=== PATIENT | male | born 1945 | race Caucasian/White ===

== ENCOUNTER 2021-09-12 15:30 | Observation (INO) | payer MEDICARE, OTHER, SELFPAY ==
--- NOTE | ~2021-09-12 | CT_ITS ---
EXAMINATION: CT CHEST, ABDOMEN PELVIS, BRAIN AND CERVICAL SPINE. CLINICAL INFORMATION: Fall, left-sided chest and abdominal pain. On Coumadin. Head strike. COMPARISON: None TECHNIQUE: 5 mm thin axial and reformatted 2 mm thin sagittal and coronal images of brain were obtained. Axial 3 mm thin and reformatted 2 mm thin sagittal and coronal images of cervical spine were obtained. Subsequently 5 mm thin axial and reformatted 3 mm thin sagittal and coronal images of chest, abdomen pelvis were obtained without contrast. DLP [id number] FINDINGS: BRAIN: There is no acute intra-axial, extra-axial bleed, masses or midline shift. There is a left parietal and posterior parietal hypodensities suggestive of old infarct. There is no acute infarct in evolution. There is no edema. The lateral ventricles are symmetrical in size and configuration but mildly enlarged. There is diffuse periventricular hypodensity in both cerebral hemispheres without mass effect. Bone windows reveal no calvarial abnormality. There is no scalp soft tissue abnormality. Bilateral paranasal sinuses and mastoid air cells are well-aerated except for minimal pre-existing mucosal thickening in bilateral maxillary sinuses and a small air-fluid level right sphenoid sinus. The mastoid sinuses are clear. CERVICAL SPINE: There is normal cervical lordosis the vertebral heights and alignment is normal. There is loss of C3-C4 disc height. Rest of the disc heights are maintained normal. The craniovertebral junction and the C1-C2 alignment is normal. There is no visible acute fracture, dislocation or subluxation seen. The prevertebral and paravertebral soft tissues are normal. The lung apices are clear. CHEST: There is diffuse centrilobular and paraseptal emphysematous changes of both lungs with patchy interstitial thickening in left upper lobe. There is a 6 mm right apical calcification. Subpleural 3 node groundglass nodule is seen right upper lobe axial image 92/29. Also visualized is subpleural parenchymal thickening, increased interstitial thickening in both lower lobes but no bronchiectasis or bronchial wall thickening. The heart size is enlarged with coronary artery calcifications. There is atherosclerotic calcification of thoracic arch as well. No pericardial effusion seen.There are small shotty mediastinal lymph nodes. Thyroid lobes are symmetrical with punctate calcification right lobe. There is bilateral posterior pleural thickening but no effusion or pneumothorax or calcification seen. There is mild thickening of the right superior major fissure likely small loculated effusion. The axilla and chest wall is unremarkable. Bone windows reveal no acute compression fracture or subluxation. There is moderate ventral spondylosis mid and lower lumbar spine. ABDOMEN AND PELVIS: And the liver is homogeneous in density, normal size and contour. No intrahepatic ductal dilatation seen. There are several radiopaque gallstones in a contracted bladder. Visualized spleen, pancreas and bilateral adrenal glands unremarkable. Both kidneys are normal size, shape and position. No focal lesion or perinephric stranding or hydronephrosis seen. The abdominal wall appears unremarkable. There is scattered stool diverticula and gas seen in colon. Most prominent aortic The sigmoid colon. No wall thickening or pericolic fat stranding. Imaging through the pelvis however restricted due to bilateral hip prosthesis and artifacts reveal normal prostate gland. No abnormal pelvic or inguinal lymph nodes. Bone windows reveal degenerative disc changes with vacuum disc phenomena and spondylosis L4-L5 and L5-S1 disc levels. Grade 1 retrolisthesis L4 over L5 is noted. CT/CT abdomen pelvis wo con IMPRESSION: No acute intracranial process seen. 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 No acute fracture, dislocation or subluxation seen in cervical spine. There are degenerative disc changes C3-C4 disc level with ventral and posterior spondylosis. There is no acute intrathoracic process seen. There is a chronic interstitial changes in both upper and lower lobes with emphysema and bilateral posterior pleural thickening. No large mass or abnormal mediastinal or axillary lymphadenopathy seen. Moderate cardiomegaly without peripheral effusion. There is no acute process seen in the abdomen or pelvis. Diffuse sigmoid colon and rest the colon scattered diverticulosis without diverticulitis. No intra-abdominal free air or hematoma. Gallstones in a contracted gallbladder. Degenerative L4-L5 L5/S1 disc levels. There are bilateral hip prosthesis and artifacts restricting pelvic evaluation
[2021-09-12 15:43] VITALS: PULSE 76; RESP 18; TEMP 36.9; O2SAT 94
[2021-09-12 16:04] VITALS: BP 170/82; BP 174/88; PULSE 80; O2SAT 96; BMI 24.3
--- NOTE | 2021-09-12 16:08 | ED_ITS ---
HPI - Fall General Chief Complaint: Fall Stated Complaint: mechanical fall - left rib pain Time Seen by Provider: 09/12/21 16:07 Source: patient Mode of arrival: EMS Limitations: other (Poor historian.) History of Present Illness HPI Narrative: This is a 76-year-old male past medical history significant for hypertension, diabetes, CAD, CKD presenting to the emergency department with complaints of left-sided pain status post trip and fall just prior to his arrival. Patient tells me he was walking on his deck around around table, when he tripped on his neighbors knee falling onto the left side of his body. He tells me after he fell he was unable to get up without assistance. He tells me he did not hit his head or lose consciousness when this happened. When I asked patient if he had preceding symptoms he is very vague in says my left chest was bothering me, he tells me there is a discomfort localized to the left chest that does not radiate he tells me that the discomfort is constant in nature but at time it increases. Patient tells me he is on anticoagulation initially he tells me he is on Coumadin however then he tells me he is not sure of a disc Coumadin. He denies shortness of breath, nausea, vomiting, abdominal pain, fevers, chills, dizziness, headache, neck pain. MD complaint: fall Onset (ago): hour(s) (1) Fall from: standing Fall witnessed: no Place fall occurred: home Loss of consciousness: none Prolonged down time: no Symptoms prior to fall: none Context: tripped/slipped Related Data Home Medications Medication Instructions Recorded Confirmed brimonidine 0.1 % eye drops 1 drp OPHTHALMIC-RIGHT DAILY 09/12/21 09/12/21 (Alphagan P) carvedilol 6.25 mg tablet 0.5 tab PO BID 09/12/21 09/12/21 isosorbide mononitrate 30 mg 1 tab PO DAILY 09/12/21 09/12/21 tablet,extended release 24 hr latanoprost 0.005 % eye drops 1 drp OPHTHALMIC-RIGHT BEDTIME 09/12/21 09/12/21 lisinopril 5 mg tablet 2 tab PO DAILY 09/12/21 09/12/21 mirtazapine 15 mg tablet 1 tab PO BEDTIME 09/12/21 09/12/21 nitroglycerin 0.4 mg sublingual 0.4 mg SUBLINGUAL DAILY PRN 09/12/21 09/12/21 tablet prednisone 5 mg tablet 1 tab PO QAM 09/12/21 09/12/21 rivaroxaban 20 mg tablet (Xarelto) 1 tab PO QPM 09/12/21 09/12/21 rosuvastatin 10 mg tablet 1 tab PO DAILY 09/12/21 09/12/21 sertraline 25 mg tablet 1 tab PO DAILY 09/12/21 09/12/21 tramadol 50 mg tablet 1 tab PO Q6H PRN 09/12/21 09/12/21 Allergies Allergy/AdvReac Type Severity Reaction Status Date / Time Unable to Assess Allergy Unverified 09/12/21 16:09 Review of Systems Review of Systems: Constitutional : No Weight loss, No Fever, No Chills, No Fatigue, No Malaise ENT/Mouth : No sore throat, No Rhinorrhea Eyes: No Eye Pain, No Swelling, No Redness Cardiovascular : + Chest Pain, No SOB, No Dyspnea on Exertion, No Orthopnea, No Edema, No Palpitations Respiratory : No Cough, No Sputum, No Wheezing Gastrointestinal : No Nausea, No Vomiting, No Diarrhea, No Constipation, No abdominal Pain, No Hematochezia, No Melena Genitourinary : No Dysuria, No Urinary Frequency, No Hematuria, Musculoskeletal : No joint pain, No Myalgias, No Joint Swelling Skin : No Skin Lesions, No rash Neuro : No Weakness, No Numbness, No Dizziness, No Headache Psych : No Anxiety/Panic, No Depression All other systems reviewed and are negative Yes all other systems are reviewed and are negative [facility] Past Medical History Attestation statement: The following information was validated with the patient. Source: old records reviewed and nursing notes reviewed Social History Social History Alcohol intake: never Patient Tobacco Use Status: Never used Tobacco Use of substances other than those prescribed or required for medical reasons: No Advance Directives: No Advance Directives Information Provided: No Physical Exam Vital Signs: Vital Signs: Last Vital Signs Temp 98.2 F 09/12/21 22:38 Pulse 67 09/12/21 22:38 Resp 16 09/12/21 22:38 BP 148/85 H 09/12/21 22:38 Pulse Ox 92 09/12/21 22:38 BMI result Body Mass Index 24.3 Vital signs stable Appearance: Alert.? Oriented X3.? No acute distress.? Head: Normocephalic, atraumatic, no step-offs or deformities Eyes: Pupils equal, round and reactive to light.? ENT: Pharynx normal.? Neck: Normal inspection.? Neck supple.? CVS: Normal heart rate and rhythm.? Pulses normal.?+ pain with palpation to left side of chest. Respiratory: No respiratory distress.? Breath sounds normal.? No signs of evidence flail chest. Abdomen: Soft and + tenderness to LUQ and LLQ.? Skin: Skin warm and dry.? Normal skin color.? Normal skin turgor.? Extremities: No lower extremity edema.? No calf ttp. 5/5 strength to bilateral upper and lower extremities Back: No midline tenderness, no C-spine tenderness, full range of motion, no CVA tenderness bilaterally Neuro: Oriented X 3.? No motor deficit.? No sensory deficit. CN 2-12 intact Course Reevaluation(s) Reevaluation #1: CBC with no significant findings requiring intervention, patient's sodium is noted to be 132, he is being hydrated. Patient's bilirubin 2.4 and he has sli ghtly elevated transaminases as well as an elevated alk-phos, patient does have tenderness to palpation to the left upper and left lower quadrant however he did fall onto his left side, he does not have pain to palpation to the right upper and right lower quadrant. I am obtaining a CT of the abdomen and pelvis. Coags requiring no intervention. CT of the head with no intracranial process is seen. Cervical spine does not show any acute fractures, dislocations or subluxations, there are degenerative disc changes noted however no acute findings. CT of the chest with chronic interstitial changes in upper and lower lobes bilaterally with emphysema and bilateral posterior pleural thickening. No masses noted. CT of the abdomen and pelvis with no acute findings requiring intervention. There are gallstones noted in the gallbladder discuss this with patient. Time: 17:55 Reevaluation #2: Spoke to Hal proxy tells me he has a hx of chf and afib. Patient had a fall was seen at [facility]. Patient is still a poor historian. 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 He has some help at home however not sufficient resources. He states he has been disoriented. He also mentions that PCP wants patient in assisted living. Time: 21:58 Reevaluation #3: Patient's BNP noted to be significantly elevated he will be given 40 mg of Lasix, and monitored. At this time patient will be admitted to the hospitalist team for elevated troponin, CHF. And further evaluation by Cardiology. Time: 22:52 MDM - Fall MDM Narrative Medical decision making narrative: 1612 76-year-old male presents to the emergency department status post trip and fall, tells me this was a mechanical fall landing on the left side of his body now complaining of left-sided rib pain/left-sided shoulder pain. No LOC. PE significant for pain with palpation to left upper and lower quadrants of the abdomen, and pain with palpation to the left side of chest, no overlying skin changes. No paroxysmal breathing no evidence signs of fluid chest. Lungs are clear unlikely that this is pneumothorax. Regular rate and rhythm. Pupils equal round and reactive to light. No step-offs or deformities on the head no e vidence signs of trauma. No step-offs or deformities or tenderness of the cervical spine. Neuro nonfocal. Plan- labs, urine, ct head chest, abd and pelvis, cervical spine. Will r/o rib fx, ich. Unlikley pneumothorax Medical Records Attestation: I reviewed the patient's medical records. Lab Data Attestation: I reviewed the patient's lab results. Result diagrams: 09/12/21 16:42 09/12/21 16:42 Labs: Lab Results 09/12/21 09/12/21 09/12/21 Range/Units 16:42 16:42 16:42 WBC 5.7 (4.8-10.8) X10*3/uL RBC 4.34 L (4.60-5.80) X10*6/uL Hgb 12.7 L (14.0-18.0) g/dl Hct 38.3 L (42.0-52.0) % MCV 88.2 (80.0-98.0) fL MCH 29.3 (27.0-33.0) pg MCHC 33.2 (31.0-36.0) g/dl RDW 15.4 (11.0-16.0) % Plt Count 130 L (160-400) X10*3/uL MPV 10.5 (9.4-12.4) fL Immature Gran % (Auto) 0.5 H (0.0-0.4) % Neut % (Auto) 70.7 (45-73) % Lymph % (Auto) 7.0 L (20-40) % [place] % (Auto) 9.2 (2-11) % Eos % (Auto) 11.0 H (0-4) % Baso % (Auto) 1.6 (0-2) % Lymph # (Auto) 0.4 L (1.2-4.9) X10*3/uL [place] # (Auto) 0.5 (0.1-1.2) X10*3/uL Eos # (Auto) 0.6 H (0.0-0.4) X10*3/uL Baso # (Auto) 0.1 (0.0-0.2) X10*3/uL Abs Immat Gran (auto) 0.03 (0.00-0.03) X10*3/uL Absolute Neuts (auto) 4.1 (2.0-8.3) x10*3/uL Absolute Nucleated RBC 0.000 (0.0-0.012) X10*3/uL Nucleated RBC % (auto) 0.0 (0.0-0.2) /100WBC PT 18.1 H (9.9-13.0) SEC INR 1.6 H (0.9-1.1) Sodium 132 L (135-145) mmol/L Potassium 4.5 (3.3-5.1) mmol/L Chloride 99 (96-108) mmol/L Carbon Dioxide 24 (22-29) mmol/L Anion Gap 14 (12-20) BUN 11 (9-16) mg/dL Creatinine 0.78 (0.5-1.4) mg/dL Estim Creat Clear Calc 80.5 Estimated GFR > 60 Random Glucose 97 (60-115) mg/dL Calcium 9.6 (8.4-10.2) mg/dL Magnesium 1.9 (1.6-2.6) mg/dL Total Bilirubin 2.4 H (0.0-1.0) mg/dL AST 59 H (5-37) U/L ALT 50 H (0-40) U/L Alkaline Phosphatase 327 H (39-117) U/L Troponin I High Sens (<3.5-35.0) ng/L B-Natriuretic Peptide (<100) pg/mL Total Protein 7.1 (6.5-8.0) g/dL Albumin 3.3 L (3.5-5.0) g/dL Urine Color Urine Appearance Urine pH (5.0-8.0) Ur Specific [place] (1.005-1.025) Urine Protein (NEG-TRACE) MG/DL Urine Glucose (UA) (NEG) MG/DL Urine Ketones (NEG) MG/DL Urine Blood (NEG) Urine Nitrite (NEG) Ur Leukocyte Esterase (NEG) Urine RBC (0) /HPF Urine WBC (0-4) /HPF Ur Squamous Epith Cells /LPF Urine Bacteria /LPF 09/12/21 09/12/21 09/12/21 Range/Units 16:42 20:27 20:28 WBC (4.8-10.8) X10*3/uL RBC (4.60-5.80) X10*6/uL Hgb (14.0-18.0) g/dl Hct (42.0-52.0) % MCV (80.0-98.0) fL MCH (27.0-33.0) pg MCHC (31.0-36.0) g/dl RDW (11.0-16.0) % Plt Count (160-400) X10*3/uL MPV (9.4-12.4) fL Immature Gran % (Auto) (0.0-0.4) % Neut % (Auto) (45-73) % Lymph % (Auto) (20-40) % [place] % (Auto) (2-11) % Eos % (Auto) (0-4) % Baso % (Auto) (0-2) % Lymph # (Auto) (1.2-4.9) X10*3/uL [place] # (Auto) (0.1-1.2) X10*3/uL Eos # (Auto) (0.0-0.4) X10*3/uL Baso # (Auto) (0.0-0.2) X10*3/uL Abs Immat Gran (auto) (0.00-0.03) X10*3/uL Absolute Neuts (auto) (2.0-8.3) x10*3/uL Absolute Nucleated RBC (0.0-0.012) X10*3/uL Nucleated RBC % (auto) (0.0-0.2) /100WBC PT (9.9-13.0) SEC INR (0.9-1.1) Sodium (135-145) mmol/L Potassium (3.3-5.1) mmol/L Chloride (96-108) mmol/L Carbon Dioxide (22-29) mmol/L Anion Gap (12-20) BUN (9-16) mg/dL Creatinine (0.5-1.4) mg/dL Estim Creat Clear Calc Estimated GFR Random Glucose (60-115) mg/dL Calcium (8.4-10.2) mg/dL Magnesium (1.6-2.6) mg/dL Total Bilirubin (0.0-1.0) mg/dL AST (5-37) U/L ALT (0-40) U/L Alkaline Phosphatase (39-117) U/L Troponin I High Sens 29.7 35.9 H (<3.5-35.0) ng/L B-Natriuretic Peptide 1131 H (<100) pg/mL Total Protein (6.5-8.0) g/dL Albumin (3.5-5.0) g/dL Urine Color YELLOW Urine Appearance CLEAR Urine pH 6.5 (5.0-8.0) Ur Specific [place] 1.020 (1.005-1.025) Urine Protein 2+ H (NEG-TRACE) MG/DL Urine Glucose (UA) NEG (NEG) MG/DL Urine Ketones 15 (NEG) MG/DL Urine Blood NEG (NEG) Urine Nitrite NEG (NEG) Ur Leukocyte Esterase NEG (NEG) Urine RBC 0-2 (0) /HPF Urine WBC 0-2 (0-4) /HPF Ur Squamous Epith Cells TRACE /LPF Urine Bacteria NONE /LPF Critical Care Time Critical Care Time Critical Care Time: No Discharge Plan Discharge Clinical Impression: Fall, Rib pain, Chest pain, CHF (congestive heart failure) Patient Disposition: Admitted As Inpatient
[2021-09-12 16:47] LABS: MANUAL DIFF FLAG NO
[2021-09-12 16:51] LABS: Basophils Absolute Auto 0.1 X10*3/uL (0.0-0.2); Basophils Percent Auto 1.6 % (0-2); Eosinophils Absolute Auto 0.6 X10*3/uL (0.0-0.4); Hematocrit 38.3 % (42.0-52.0); Hemoglobin 12.7 g/dl (14.0-18.0); Imm Gran Abs Auto 0.03 X10*3/uL (0.00-0.03); Imm Gran Pct Auto 0.5 % (0.0-0.4); Lymphocytes Absolute Auto 0.4 X10*3/uL (1.2-4.9); Mean Corpuscular HGB Conc 33.2 g/dl (31.0-36.0); Mean Corpuscular Hemoglobin 29.3 pg (27.0-33.0); Mean Corpuscular Volume 88.2 fL (80.0-98.0); Mean Platelet Volume 10.5 fL (9.4-12.4); Monocytes Absolute Auto 0.5 X10*3/uL (0.1-1.2); Monocytes Percent Auto 9.2 % (2-11); Neutrophils Absolute Auto 4.1 x10*3/uL (2.0-8.3); Neutrophils Percent Auto 70.7 % (45-73); Platelet Count 130 X10*3/uL (160-400); Red Blood Count 4.34 X10*6/uL (4.60-5.80); Red Cell Distribution Width 15.4 % (11.0-16.0); White Blood Count 5.7 X10*3/uL (4.8-10.8)
[2021-09-12 16:54] LABS: INTERNATIONAL NORM RATIO 1.6 (0.9-1.1); Prothrombin Time 18.1 SEC (9.9-13.0)
[2021-09-12 17:14] LABS: Alanine Aminotransferase 50 U/L (0-40); Albumin Level 3.3 g/dL (3.5-5.0); Alkaline Phosphatase 327 U/L (39-117); Anion Gap 14 (12-20); Aspartate Amino Transferase 59 U/L (5-37); Bilirubin Total 2.4 mg/dL (0.0-1.0); Blood Urea Nitrogen 11 mg/dL (9-16); Calcium 9.6 mg/dL (8.4-10.2); Carbon Dioxide 24 mmol/L (22-29); Chloride 99 mmol/L (96-108); Creatinine Clr Calc Pharmacy 80.5; Estimated Glomerular Filt Rate > 60; Glucose Random 97 mg/dL (60-115); Magnesium 1.9 mg/dL (1.6-2.6); Potassium 4.5 mmol/L (3.3-5.1); Sodium 132 mmol/L (135-145); Total Protein 7.1 g/dL (6.5-8.0)
[2021-09-12 17:20] LABS: Troponin-I High Sensitivity 29.7 ng/L (<3.5-35.0)
--- NOTE | 2021-09-12 18:05 | ECG_ITS ---
Test Reason : CP Blood Pressure : / mmHG Vent. Rate : 072 BPM Atrial Rate : 000 BPM P-R Int : 000 ms QRS Dur : 122 ms QT Int : 400 ms P-R-T Axes : 000 -58 109 degrees QTc Int : 438 ms Atrial fibrillation Left axis deviation Left ventricular hypertrophy with QRS widening and repolarization abnormality ( R in aVL , Jc product , Romhilt-Tovar ) Lateral infarct , age undetermined Inferior infarct , age undetermined Abnormal ECG No previous ECGs available Referred By: Fidel Joshi Electronically Signed By:EMANUEL NAGY
[2021-09-12 18:37] VITALS: BP 155/87; PULSE 74; RESP 16; TEMP 37.1; O2SAT 95
[2021-09-12 20:35] LABS: Appearance Urine CLEAR; Color Urine YELLOW; Glucose Urine UA NEG (NEG); Leukocyte Esterase Urine NEG (NEG); Nitrite Urine NEG (NEG); PH 6.5 (5.0-8.0); UACC Culture Trigger NO; Urine Blood NEG (NEG); Urine Ketones 15 MG/DL (NEG); Urine Protein 2+ MG/DL (NEG-TRACE)
--- NOTE | 2021-09-12 20:44 | PHA.MEDREC ---
Pharmacy Consult ? Medication Reconciliation Pharmacy has completed the medication reconciliation. Patient is not a good historian. Patient reports taking medications filled in march and unsure about medications recently filled. Completed med rec based on claim history. Medication not include in home list as they have no been filled recently are: Finasteride 5 mg daily filled 04/15/21 x 90 days Furosemide 40 mg 0.5 tablet daily filled 04/03/21 x 90 Tamsulosin 0.4 mg at bedtime filled 05/01/21 x 90 Patient should have ran out of these medications, and is most likely no longer taking medications. Aimee Crews, PharmD
[2021-09-12 21:11] LABS: Troponin-I High Sensitivity 35.9 ng/L (<3.5-35.0)
[2021-09-12 22:21] LABS: B Type Natriuretic Peptide 1131 pg/mL (<100)
[2021-09-12 22:35] LABS: RBC Urine 0-2 /HPF (0); Squamous Epithelial Cell Urine TRACE /LPF; WBC Urine 0-2 /HPF (0-4)
[2021-09-12 22:38] VITALS: BP 148/85; PULSE 67; RESP 16; TEMP 36.8; O2SAT 92
[2021-09-12] MEDS: Furosemide 40 MG/4 ML VIAL IVPUSH (22:45)
[2021-09-12 23:10] VITALS: BP 163/83; PULSE 72; RESP 16; O2SAT 94
--- NOTE | 2021-09-12 23:11 | P.HPHOSP_ITS ---
History of Present Illness Date of Service: 09/12/21 Chief Complaint: fall 76M with Hx of HTN, HLD, DM, CKD,hx Rec falls,CVA, Forgetfullness p/w Fall. patient reported that he was walking around his deck; tripped and fell on the left side; at his left chest; denies any head strike or loss of consciousness. Reports he has been generally weak. Patient also reports urinary frequency. Denies any abdominal pain. Denies any fevers. Patient denies any loss of consciousness. denies any GI symptoms. Also reported that he had recent falls and admitted to the [facility]. Review of all other systems is negative except mentioned above ER course: Per ER team patient does complain of chest pain; CT scan head, C- spine, chest abdomen pelvis showed no acute findings; EKG nonischemic; troponins indeterminate and plateaued; mentioned that when spoken to the patient's healthcare proxy -patient lives alone, forgetful lately, question reliable history; given unwitnessed fall in concerns for possible syncope decided to admit to the hospital for further management PMFSH Pertinent family history: patient unable to provide information Social History Alcohol intake: never Patient Tobacco Use Status: Never used Tobacco Use of substances other than those prescribed or required for medical reasons: No Advance Directives: No Advance Directives Information Provided: No Meds Allergies Allergy/AdvReac Type Severity Reaction Status Date / Time Unable to Assess Allergy Unverified 09/12/21 16:09 Active Medications: Current Medications Acetaminophen (Acetaminophen 325 Mg Tablet) 650 mg PO Q6H PRN PRN Reason: Pain, Mild (Pain Scale 1-3) Melatonin (Melatonin 3 Mg Tablet) 6 mg PO BEDTIME PRN PRN Reason: Insomnia Pharmacy Consult (Consult Rx Perform Med Rec) 1 each MISCELLANE ONCE PRN PRN Reason: Consult order Senna (Sennosides 8.6 Mg Tablet) 17.2 mg PO BEDTIME PRN PRN Reason: Constipation Sodium Chloride (0.9 % Sodium Chloride Flush 3 Ml Syringe) 3 ml IVFLUSH QSHIFT [facility] Home Medications Medication Instructions Recorded Confirmed Last Taken Type brimonidine 0.1 % eye drops 1 drp OPHTHALMIC-RIGHT DAILY 09/12/21 09/12/21 Unknown History (Alphagan P) carvedilol 6.25 mg tablet 0.5 tab PO BID 09/12/21 09/12/21 Unknown History isosorbide mononitrate 30 mg 1 tab PO DAILY 09/12/21 09/12/21 Unknown History tablet,extended release 24 hr latanoprost 0.005 % eye drops 1 drp OPHTHALMIC-RIGHT BEDTIME 09/12/21 09/12/21 Unknown History lisinopril 5 mg tablet 2 tab PO DAILY 09/12/21 09/12/21 Unknown History mirtazapine 15 mg tablet 1 tab PO BEDTIME 09/12/21 09/12/21 Unknown History nitroglycerin 0.4 mg sublingual 0.4 mg SUBLINGUAL DAILY PRN 09/12/21 09/12/21 Unknown History tablet prednisone 5 mg tablet 1 tab PO QAM 09/12/21 09/12/21 Unknown History rivaroxaban 20 mg tablet (Xarelto) 1 tab PO QPM 09/12/21 09/12/21 Unknown History rosuvastatin 10 mg tablet 1 tab PO DAILY 09/12/21 09/12/21 Unknown History sertraline 25 mg tablet 1 tab PO DAILY 09/12/21 09/12/21 Unknown History tramadol 50 mg tablet 1 tab PO Q6H PRN 09/12/21 09/12/21 Unknown History Physical Exam Vital Signs and Narrative: Vital Signs: Last Vital Signs Temp 98.2 F 09/12/21 22:38 Pulse 67 09/12/21 22:38 Resp 16 09/12/21 22:38 BP 148/85 H 09/12/21 22:38 Pulse Ox 92 09/12/21 22:38 BMI result Body Mass Index 24.3 Gen: Appears be in no acute distress HEENT: NCAT, Moist mucosa. Pulmonary: Vesicular breath sounds, fair air entry CVS: Normal S1-S2 Abdomen: BS+, Soft, Nontender Extremities: Warm well perfused Neuro: Alert and awake. Results Labs CBC and Chem 7: 09/12/21 16:42 09/12/21 16:42 Labs: Laboratory Results - last 24 hr 09/12/21 09/12/21 09/12/21 16:42 16:42 16:42 MCV 88.2 MCH 29.3 MCHC 33.2 RDW 15.4 Plt Count 130 L MPV 10.5 Immature Gran % (Auto) 0.5 H Neut % (Auto) 70.7 Lymph % (Auto) 7.0 L [place] % (Auto) 9.2 Eos % (Auto) 11.0 H Baso % (Auto) 1.6 Lymph # (Auto) 0.4 L [place] # (Auto) 0.5 Eos # (Auto) 0.6 H Baso # (Auto) 0.1 Abs Immat Gran (auto) 0.03 Absolute Neuts (auto) 4.1 Absolute Nucleated RBC 0.000 Nucleated RBC % (auto) 0.0 PT 18.1 H INR 1.6 H Anion Gap 14 Estim Creat Clear Calc 80.5 Estimated GFR > 60 Random Glucose 97 Calcium 9.6 Magnesium 1.9 Total Bilirubin 2.4 H AST 59 H ALT 50 H Alkaline Phosphatase 327 H Troponin I High Sens B-Natriuretic Peptide Total Protein 7.1 Albumin 3.3 L Urine Color Urine Appearance Urine pH Ur Specific [place] Urine Protein Urine Glucose (UA) Urine Ketones Urine Blood Urine Nitrite Ur Leukocyte Esterase Urine RBC Urine WBC Ur Squamous Epith Cells Urine Bacteria 09/12/21 09/12/21 09/12/21 16:42 20:27 20:28 MCV MCH MCHC RDW Plt Count MPV Immature Gran % (Auto) Neut % (Auto) Lymph % (Auto) [place] % (Auto) Eos % (Auto) Baso % (Auto) Lymph # (Auto) [place] # (Auto) Eos # (Auto) Baso # (Auto) Abs Immat Gran (auto) Absolute Neuts (auto) Absolute Nucleated RBC Nucleated RBC % (auto) PT INR Anion Gap Estim Creat Clear Calc Estimated GFR Random Glucose Calcium Magnesium Total Bilirubin AST ALT Alkaline Phosphatase Troponin I High Sens 29.7 35.9 H B-Natriuretic Peptide 1131 H Total Protein Albumin Urine Color YELLOW Urine Appearance CLEAR Urine pH 6.5 Ur Specific [place] 1.020 Urine Protein 2+ H Urine Glucose (UA) NEG Urine Ketones 15 Urine Blood NEG Urine Nitrite NEG Ur Leukocyte Esterase NEG Urine RBC 0-2 Urine WBC 0-2 Ur Squamous Epith Cells TRACE Urine Bacteria NONE Imaging Radiologist's Impressions: Impressions Abdomen/Pelvis CT 09/12/21 16:55 IMPRESSION: No acute intracranial process seen. 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 No acute fracture, dislocation or subluxation seen in cervical spine. There are degenerative disc changes C3-C4 disc level with ventral and posterior spondylosis. There is no acute intrathoracic process seen. There is a chronic interstitial changes in both upper and lower lobes with emphysema and bilateral posterior pleural thickening. No large mass or abnormal mediastinal or axillary lymphadenopathy seen. Moderate cardiomegaly without peripheral effusion. There is no acute process seen in the abdomen or pelvis. Diffuse sigmoid colon and rest the colon scattered diverticulosis without diverticulitis. No intra-abdominal free air or hematoma. Gallstones in a contracted gallbladder. Degenerative L4-L5 L5/S1 disc levels. There are bilateral hip prosthesis and artifacts restricting pelvic evaluation Cervical Spine CT 09/12/21 16:55 IMPRESSION: No acute intracranial process seen. 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 No acute fracture, dislocation or subluxation seen in cervical spine. There are degenerative disc changes C3-C4 disc level with ventral and posterior spondylosis. There is no acute intrathoracic process seen. There is a chronic interstitial changes in both upper and lower lobes with emphysema and bilateral posterior pleural thickening. No large mass or abnormal mediastinal or axillary lymphadenopathy seen. Moderate cardiomegaly without peripheral effusion. There is no acute process seen in the abdomen or pelvis. Diffuse sigmoid colon and rest the colon scattered diverticulosis without diverticulitis. No intra-abdominal free air or hematoma. Gallstones in a contracted gallbladder. Degenerative L4-L5 L5/S1 disc levels. There are bilateral hip prosthesis and artifacts restricting pelvic evaluation Chest CT 09/12/21 16:55 IMPRESSION: No acute intracranial process seen. 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 No acute fracture, dislocation or subluxation seen in cervical spine. There are degenerative disc changes C3-C4 disc level with ventral and posterior spondylosis. There is no acute intrathoracic process seen. There is a chronic interstitial changes in both upper and lower lobes with emphysema and bilateral posterior pleural thickening. No large mass or abnormal mediastinal or axillary lymphadenopathy seen. Moderate cardiomegaly without peripheral effusion. There is no acute process seen in the abdomen or pelvis. Diffuse sigmoid colon and rest the colon scattered diverticulosis without diverticulitis. No intra-abdominal free air or hematoma. Gallstones in a contracted gallbladder. Degenerative L4-L5 L5/S1 disc levels. There are bilateral hip prosthesis and artifacts restricting pelvic evaluation Head CT 09/12/21 16:55 IMPRESSION: No acute intracranial process seen. 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 No acute fracture, dislocation or subluxation seen in cervical spine. There are degenerative disc changes C3-C4 disc level with ventral and posterior spondylosis. There is no acute intrathoracic process seen. There is a chronic interstitial changes in both upper and lower lobes with emphysema and bilateral posterior pleural thickening. No large mass or abnormal mediastinal or axillary lymphadenopathy seen. Moderate cardiomegaly without peripheral effusion. There is no acute process seen in the abdomen or pelvis. Diffuse sigmoid colon and rest the colon scattered diverticulosis without diverticulitis. No intra-abdominal free air or hematoma. Gallstones in a contracted gallbladder. Degenerative L4-L5 L5/S1 disc levels. There are bilateral hip prosthesis and artifacts restricting pelvic evaluation Assessment and Plan (1) Fall: Status: Acute (2) Chest pain: Status: Acute Plan 76M with Hx of HTN, HLD, DM, CKD,hx Rec falls,CVA, Forgetfullness p/w Fall. fall: Unwitnessed: CT scan showed no evidence of fracture. CT head showed no acute intracranial process Fall precautions PT/OT chest pain: Reproducible Telemetry Troponins are indeterminate and plateaued. EKG nonischemic Mild transaminitis: Patient t Bili Elevated 2.4. no evidence of slightly elevated. Will obtain acute hepatitis panel. CT abdomen pelvis showed normal liver but noted gallstones. ?DM: ISS; Hba1c. Pt not on any meds at home. history of AFib: Rate controlled. Continue home rivaroxaban. Pt has elevated proBNP; but CT chest showed no congestion. pt received Lasix in ER. Now requesting Delcid. history of rheumatoid arthritis: Continue home prednisone history of hypertension: Continue home medication history of glaucoma: Continue home eye drops DVT prophylaxis: Patient on Xarelto code status: Full code Quality Stroke Does the patient have a stroke diagnosis?: No VTE Prior VTE?: No VTE Risk Level:: Medical - moderate - high VTE Device Contraindication: Treatment Not Indicated VTE Drug Contraindication: N/A - Med Ordered
[2021-09-13] VITALS (10 sets, daily range): BP systolic 94–156; BP diastolic 46–77; PULSE 59–74; RESP 16–30; TEMP 36.7–36.9; O2SAT 90–98
[2021-09-13] MEDS: Melatonin 3 MG TABLET 6 MG PO (01:13)
[2021-09-13] MEDS: Mirtazapine 15 MG TABLET PO ×2 (01:14→20:38)
[2021-09-13] MEDS: Rivaroxaban 20 MG TABLET PO ×2 (01:14→17:20)
[2021-09-13] MEDS: 0.9 % Sodium Chloride Flush 3 ML SYRINGE IVFLUSH ×4 (01:14→23:18)
[2021-09-13] MEDS: carvediloL 3.125 MG TABLET PO ×3 (01:14→20:37)
[2021-09-13] MEDS: Lidocaine HCl 2 % Urojet 10 ML JEL.PF.APP TOPICAL (01:31)
[2021-09-13 05:14] LABS: Eosinophils Absolute Auto 0.5 X10*3/uL (0.0-0.4); Hemoglobin 12.1 g/dl (14.0-18.0); Imm Gran Abs Auto 0.03 X10*3/uL (0.00-0.03); Imm Gran Pct Auto 0.5 % (0.0-0.4); Lymphocytes Absolute Auto 0.4 X10*3/uL (1.2-4.9); Lymphocytes Percent Auto 7.7 % (20-40); PLT CLUMP 1; Red Cell Distribution Width 15.3 % (11.0-16.0); SCAN SMEAR FLAG 1
[2021-09-13 05:16] LABS: Basophils Absolute Auto 0.1 X10*3/uL (0.0-0.2); Basophils Percent Auto 1.4 % (0-2); Eosinophils Percent Auto 9.7 % (0-4); Hematocrit 35.8 % (42.0-52.0); Mean Corpuscular HGB Conc 33.8 g/dl (31.0-36.0); Mean Corpuscular Volume 88.6 fL (80.0-98.0); Mean Platelet Volume 12.4 fL (9.4-12.4); Monocytes Absolute Auto 0.6 X10*3/uL (0.1-1.2); Monocytes Percent Auto 9.8 % (2-11); Neutrophils Percent Auto 70.9 % (45-73); Red Blood Count 4.04 X10*6/uL (4.60-5.80)
[2021-09-13 05:17] LABS: MANUAL DIFF FLAG NO; Platelet Count 119 X10*3/uL (160-400); White Blood Count 5.6 X10*3/uL (4.8-10.8)
[2021-09-13 05:30] LABS: Alanine Aminotransferase 41 U/L (0-40); Albumin Level 2.9 g/dL (3.5-5.0); Alkaline Phosphatase 286 U/L (39-117); Aspartate Amino Transferase 41 U/L (5-37); Bilirubin Direct 1.5 mg/dL (0.0-0.5); Bilirubin Total 2.4 mg/dL (0.0-1.0); Total Protein 6.2 g/dL (6.5-8.0)
[2021-09-13 05:34] LABS: Anion Gap 10 (12-20); Blood Urea Nitrogen 11 mg/dL (9-16); Calcium 8.9 mg/dL (8.4-10.2); Carbon Dioxide 28 mmol/L (22-29); Chloride 97 mmol/L (96-108); Creatinine Clr Calc Pharmacy 84.9; Estimated Glomerular Filt Rate > 60; Glucose Random 93 mg/dL (60-115); Potassium 3.4 mmol/L (3.3-5.1); Sodium 132 mmol/L (135-145)
[2021-09-13 06:40] LABS: Estimated Average Glucose 117 mg/dL; Hemoglobin A1c % 5.7 %
[2021-09-13 07:59] LABS: HBc Num1 0.16 S/CO (0.00-0.79); Hepatitis B Core Antibody Nonreactive (Nonreactive); Hepatitis B Surface Antigen Negative (Negative); ~HepC Num1 0.16 S/CO (0.00-0.79); ~Hepatitis B Surface Antibody NONREACTIVE (Nonreactive); ~Hepatitis C Antibody Nonreactive (Nonreactive)
[2021-09-13 08:00] LABS: Glucose, Whole Blood 89 mg/dL (60-115)
[2021-09-13 08:27] LABS: HBS Num1 0.21 mIU/mL (0-7.99); HBsAGNum1 0.67 S/CO (0.00-0.99)
[2021-09-13 08:49] LABS: VBG Base Excess 5.7 mmol/L; VBG HCO3 30 mmol/L (22-26); VBG pCO2 45 mmHg; VBG pH 7.43 (7.32-7.43); VBG pO2 35 mmHg
[2021-09-13 08:50] LABS: Venous Blood Gas Refer to POC result
[2021-09-13] MEDS: predniSONE 5 MG TABLET PO (08:57)
[2021-09-13] MEDS: Sertraline HCL 25 MG TABLET PO (08:57)
[2021-09-13] MEDS: Isosorbide Mononitrate 30 MG TAB.ER.24H PO (08:57)
[2021-09-13] MEDS: Atorvastatin Calcium 40 MG TABLET PO (08:57)
[2021-09-13] MEDS: lisinopriL 10 MG TABLET PO (08:57)
[2021-09-13 09:03] LABS: Troponin-I High Sensitivity 39.6 ng/L (<3.5-35.0)
[2021-09-13 09:04] LABS: B Type Natriuretic Peptide 1542 pg/mL (<100)
[2021-09-13] MEDS: Brimonidine Tartrate 0.2% Oph 5 ML BOTTLE 1 DROP EYE-RIGHT (09:15)
[2021-09-13 10:37] LABS: COVID-19 Test Negative (Negative)
--- NOTE | 2021-09-13 10:54 | MHC.CM.PN ---
Met with pt to discuss d/c planning: pt states he resides alone, has VNA visits from an unknown agency and uses a walker or a cane. States PCP is Dr. Mcmahon, HCP at home (cousin Sam), Angiea x 3, MANDUJANO in chart. Pt states he will be leaving the ED for home shortly No d/c order in place as of this entry. CM to follow. No additional services anticipated and pt should be able to return to home without services.
[2021-09-13 13:01] LABS: Glucose, Whole Blood 113 mg/dL (60-115)
--- NOTE | 2021-09-13 15:15 | HO.PM.IMPN ---
Subjective Subjective Date of Service: 09/13/21 Interval History: Confirmed he had a purely mechanical fall. No LOC. However, he is extremely forgetful. He was at [facility] last week but unsure whether he was admitted or not. Chest pain resolved NO cough or dyspnea Review of Systems Review of Systems: Yes all other systems are reviewed and are negative Physical Exam Vital Signs: Vital Signs: Last Vital Signs Temp 98.2 F 09/13/21 11:03 Pulse 59 09/13/21 11:03 Resp 18 09/13/21 11:03 BP 123/71 09/13/21 11:03 Pulse Ox 98 09/13/21 06:00 BMI result Body Mass Index 24.3 Gen: in no acute distress HEENT: sclera anicteric, moist mucus membranes Neck: supple Lungs: clear to auscultation bilaterally Heart: irregularly irregular, no murmurs Abd: soft, non-tender, non-distended Ext: no edema Skin: warm/well-perfused Neuro: alert and oriented x3, no focal findings Psych: appropriate affect Objective Data Active Medications Acetaminophen (Acetaminophen 325 Mg Tablet) 650 mg PO Q6H PRN PRN Reason: Pain, Mild (Pain Scale 1-3) Atorvastatin Calcium (Atorvastatin Calcium 40 Mg Tablet) 40 mg PO DAILY [facility] Last Admin: 09/13/21 08:57 Dose: 40 mg Documented by: DENYS Brimonidine Tartrate (Brimonidine Tartrate 0.2% Oph 5 Ml Bottle) 1 drop EYE-RIGHT DAILY [facility] Last Admin: 09/13/21 09:15 Dose: 1 drop Documented by: DENYS Carvedilol (Carvedilol 3.125 Mg Tablet) 3.125 mg PO BID [facility]; Protocol Last Admin: 09/13/21 08:57 Dose: 3.125 mg Documented by: DENYS Dextrose (Dextrose 50 % 25 Gm/50 Ml Syringe) 25 gm IVPUSH Q15M PRN; Protocol PRN Reason: per Hypoglycemia Standing Ord. Glucose (Glucose Gel 15 Gm Gel..Gram.) 15 gm PO Q15M PRN; Protocol PRN Reason: per Hypoglycemia Standing Ord. Insulin Human Lispro (Insulin Lispro 100 Unit/Ml 3 Ml Vial) 0 unit SUBCUT QIDACHS [facility]; Protocol Last Admin: 09/13/21 13:33 Dose: Not Given Documented by: DENYS Non-Admin Reason: No Insulin Coverage Isosorbide Mononitrate (Isosorbide Mononitrate 30 Mg Tab.Er.24h) 30 mg PO DAILY [facility]; Protocol Last Admin: 09/13/21 08:57 Dose: 30 mg Documented by: DENYS Latanoprost (Latanoprost 0.005 % Ophth Marilou 2.5 Ml Drops) 1 drop EYE-RIGHT BEDTIME [facility] Lisinopril (Lisinopril 10 Mg Tablet) 10 mg PO DAILY [facility]; Protocol Last Admin: 09/13/21 08:57 Dose: 10 mg Documented by: DENYS Melatonin (Melatonin 3 Mg Tablet) 6 mg PO BEDTIME PRN PRN Reason: Insomnia Last Admin: 09/13/21 01:13 Dose: 6 mg Documented by: KRISTA Mirtazapine (Mirtazapine 15 Mg Tablet) 15 mg PO BEDTIME [facility] Last Admin: 09/13/21 01:14 Dose: 15 mg Documented by: KRISTA Nitroglycerin (Nitroglycerin 0.4 Mg Tab.Subl) 0.4 mg SUBLINGUAL DAILY PRN PRN Reason: Chest Pain Pharmacy Consult (Consult Rx Perform Med Rec) 1 each MISCELLANE ONCE PRN PRN Reason: Consult order Prednisone (Prednisone 5 Mg Tablet) 5 mg PO DAILY@0800 [facility] Last Admin: 09/13/21 08:57 Dose: 5 mg Documented by: DENYS Rivaroxaban (Rivaroxaban 20 Mg Tablet) 20 mg PO DAILY@1800 [facility] Last Admin: 09/13/21 01:14 Dose: 20 mg Documented by: KRISTA Senna (Sennosides 8.6 Mg Tablet) 17.2 mg PO BEDTIME PRN PRN Reason: Constipation Sertraline HCl (Sertraline Hcl 25 Mg Tablet) 25 mg PO DAILY [facility] Last Admin: 09/13/21 08:57 Dose: 25 mg Documented by: DENYS Sodium Chloride (0.9 % Sodium Chloride Flush 3 Ml Syringe) 3 ml IVFLUSH QSHIFT [facility] Last Admin: 09/13/21 08:58 Dose: 3 ml Documented by: DENYS Labs CBC & Chem 7: 09/13/21 04:47 09/13/21 04:47 Labs: Laboratory Results - last 24 hr 09/12/21 09/12/21 09/12/21 16:42 16:42 16:42 MCV 88.2 MCH 29.3 MCHC 33.2 RDW 15.4 Plt Count 130 L MPV 10.5 Immature Gran % (Auto) 0.5 H Neut % (Auto) 70.7 Lymph % (Auto) 7.0 L Cloud % (Auto) 9.2 Eos % (Auto) 11.0 H Baso % (Auto) 1.6 Lymph # (Auto) 0.4 L Cloud # (Auto) 0.5 Eos # (Auto) 0.6 H Baso # (Auto) 0.1 Abs Immat Gran (auto) 0.03 Absolute Neuts (auto) 4.1 Absolute Nucleated RBC 0.000 Nucleated RBC % (auto) 0.0 PT 18.1 H INR 1.6 H VBG pH VBG pCO2 VBG pO2 VBG HCO3 VBG O2 Saturation VBG Base Excess Anion Gap 14 Estim Creat Clear Calc 80.5 Estimated GFR > 60 POC Glucose Random Glucose 97 Estimat Average Glucose Hemoglobin A1c % Calcium 9.6 Magnesium 1.9 Total Bilirubin 2.4 H Direct Bilirubin AST 59 H ALT 50 H Alkaline Phosphatase 327 H Troponin I High Sens B-Natriuretic Peptide Total Protein 7.1 Albumin 3.3 L Urine Color Urine Appearance Urine pH Ur Specific [place] Urine Protein Urine Glucose (UA) Urine Ketones Urine Blood Urine Nitrite Ur Leukocyte Esterase Urine RBC Urine WBC Ur Squamous Epith Cells Urine Bacteria COVID-19 (CHARLIE) COVID-19 Clin Com Hep Bs Antigen Hep Bs Antibody Hep B Core Total Ab Hepatitis C Ab (EIA) 09/12/21 09/12/21 09/12/21 16:42 20:27 20:28 MCV MCH MCHC RDW Plt Count MPV Immature Gran % (Auto) Neut % (Auto) Lymph % (Auto) Cloud % (Auto) Eos % (Auto) Baso % (Auto) Lymph # (Auto) Cloud # (Auto) Eos # (Auto) Baso # (Auto) Abs Immat Gran (auto) Absolute Neuts (auto) Absolute Nucleated RBC Nucleated RBC % (auto) PT INR VBG pH VBG pCO2 VBG pO2 VBG HCO3 VBG O2 Saturation VBG Base Excess Anion Gap Estim Creat Clear Calc Estimated GFR POC Glucose Random Glucose Estimat Average Glucose Hemoglobin A1c % Calcium Magnesium Total Bilirubin Direct Bilirubin AST ALT Alkaline Phosphatase Troponin I High Sens 29.7 35.9 H B-Natriuretic Peptide 1131 H Total Protein Albumin Urine Color YELLOW Urine Appearance CLEAR Urine pH 6.5 Ur Specific [place] 1.020 Urine Protein 2+ H Urine Glucose (UA) NEG Urine Ketones 15 Urine Blood NEG Urine Nitrite NEG Ur Leukocyte Esterase NEG Urine RBC 0-2 Urine WBC 0-2 Ur Squamous Epith Cells TRACE Urine Bacteria NONE COVID-19 (CHARLIE) COVID-19 Clin Com Hep Bs Antigen Hep Bs Antibody Hep B Core Total Ab Hepatitis C Ab (EIA) 09/13/21 09/13/21 09/13/21 00:49 04:47 04:47 MCV 88.6 MCH 30.0 MCHC 33.8 RDW 15.3 Plt Count 119 L MPV 12.4 Immature Gran % (Auto) 0.5 H Neut % (Auto) 70.9 Lymph % (Auto) 7.7 L Cloud % (Auto) 9.8 Eos % (Auto) 9.7 H Baso % (Auto) 1.4 Lymph # (Auto) 0.4 L Cloud # (Auto) 0.6 Eos # (Auto) 0.5 H Baso # (Auto) 0.1 Abs Immat Gran (auto) 0.03 Absolute Neuts (auto) 4.0 Absolute Nucleated RBC 0.000 Nucleated RBC % (auto) 0.0 PT INR VBG pH VBG pCO2 VBG pO2 VBG HCO3 VBG O2 Saturation VBG Base Excess Anion Gap Estim Creat Clear Calc Estimated GFR POC Glucose Random Glucose Estimat Average Glucose 117 Hemoglobin A1c % 5.7 Calcium Magnesium Total Bilirubin 2.4 H Direct Bilirubin 1.5 H AST 41 H ALT 41 H Alkaline Phosphatase 286 H Troponin I High Sens B-Natriuretic Peptide Total Protein 6.2 L Albumin 2.9 L Urine Color Urine Appearance Urine pH Ur Specific [place] Urine Protein Urine Glucose (UA) Urine Ketones Urine Blood Urine Nitrite Ur Leukocyte Esterase Urine RBC Urine WBC Ur Squamous Epith Cells Urine Bacteria COVID-19 (CHARLIE) COVID-19 Clin Com Hep Bs Antigen Hep Bs Antibody Hep B Core Total Ab Hepatitis C Ab (EIA) 09/13/21 09/13/21 09/13/21 04:47 04:47 07:57 MCV MCH MCHC RDW Plt Count MPV Immature Gran % (Auto) Neut % (Auto) Lymph % (Auto) Cloud % (Auto) Eos % (Auto) Baso % (Auto) Lymph # (Auto) Cloud # (Auto) Eos # (Auto) Baso # (Auto) Abs Immat Gran (auto) Absolute Neuts (auto) Absolute Nucleated RBC Nucleated RBC % (auto) PT INR VBG pH VBG pCO2 VBG pO2 VBG HCO3 VBG O2 Saturation VBG Base Excess Anion Gap 10 L Estim Creat Clear Calc 84.9 Estimated GFR > 60 POC Glucose 89 Random Glucose 93 Estimat Average Glucose Hemoglobin A1c % Calcium 8.9 D Magnesium Total Bilirubin Direct Bilirubin AST ALT Alkaline Phosphatase Troponin I High Sens B-Natriuretic Peptide Total Protein Albumin Urine Color Urine Appearance Urine pH Ur Specific [place]wood Urine Protein Urine Glucose (UA) Urine Ketones Urine Blood Urine Nitrite Ur Leukocyte Esterase Urine RBC Urine WBC Ur Squamous Epith Cells Urine Bacteria COVID-19 (CHARLIE) COVID-19 Clin Com Hep Bs Antigen Negative Hep Bs Antibody NONREACTIVE Hep B Core Total Ab Nonreactive Hepatitis C Ab (EIA) Nonreactive 09/13/21 09/13/21 09/13/21 08:38 08:38 08:39 MCV MCH MCHC RDW Plt Count MPV Immature Gran % (Auto) Neut % (Auto) Lymph % (Auto) Cloud % (Auto) Eos % (Auto) Baso % (Auto) Lymph # (Auto) Cloud # (Auto) Eos # (Auto) Baso # (Auto) Abs Immat Gran (auto) Absolute Neuts (auto) Absolute Nucleated RBC Nucleated RBC % (auto) PT INR VBG pH 7.43 VBG pCO2 45 VBG pO2 35 VBG HCO3 30 H VBG O2 Saturation 48.0 VBG Base Excess 5.7 Anion Gap Estim Creat Clear Calc Estimated GFR POC Glucose Random Glucose Estimat Average Glucose Hemoglobin A1c % Calcium Magnesium Total Bilirubin Direct Bilirubin AST ALT Alkaline Phosphatase Troponin I High Sens 39.6 H B-Natriuretic Peptide 1542 H Total Protein Albumin Urine Color Urine Appearance Urine pH Ur Specific [place] Urine Protein Urine Glucose (UA) Urine Ketones Urine Blood Urine Nitrite Ur Leukocyte Esterase Urine RBC Urine WBC Ur Squamous Epith Cells Urine Bacteria COVID-19 (CHARLIE) COVID-19 Clin Com Hep Bs Antigen Hep Bs Antibody Hep B Core Total Ab Hepatitis C Ab (EIA) 09/13/21 09/13/21 10:09 12:54 MCV MCH MCHC RDW Plt Count MPV Immature Gran % (Auto) Neut % (Auto) Lymph % (Auto) Cloud % (Auto) Eos % (Auto) Baso % (Auto) Lymph # (Auto) Cloud # (Auto) Eos # (Auto) Baso # (Auto) Abs Immat Gran (auto) Absolute Neuts (auto) Absolute Nucleated RBC Nucleated RBC % (auto) PT INR VBG pH VBG pCO2 VBG pO2 VBG HCO3 VBG O2 Saturation VBG Base Excess Anion Gap Estim Creat Clear Calc Estimated GFR POC Glucose 113 Random Glucose Estimat Average Glucose Hemoglobin A1c % Calcium Magnesium Total Bilirubin Direct Bilirubin AST ALT Alkaline Phosphatase Troponin I High Sens B-Natriuretic Peptide Total Protein Albumin Urine Color Urine Appearance Urine pH Ur Specific [place] Urine Protein Urine Glucose (UA) Urine Ketones Urine Blood Urine Nitrite Ur Leukocyte Esterase Urine RBC Urine WBC Ur Squamous Epith Cells Urine Bacteria COVID-19 (CHARLIE) Negative COVID-19 Clin Com See Note Hep Bs Antigen Hep Bs Antibody Hep B Core Total Ab Hepatitis C Ab (EIA) Assessment and Plan (1) Fall: Status: Acute (2) Chest pain: Status: Acute Plan hospital d#2 76yo M with AF on rivaroxaban, HTN, HLD, CHF, RA presented after mechanical fall awaiting records from [facility] where he may have been hosiptalized last week # atypical chest pian - Tn-I indeterminate flat, no ischemic EKG changes, appears MSK in nature # urinary retention, acute - d/c Delcid, voiding trial # AF - rate-controlled - continue rivaroxaban # HTN - continue Imdur, lisinopril, carvedilol # CHF, unknown EF - continue PAUL-I + beta-phil, appears euvolemic # HLD - continue statin # RA - continue home prednisone # mood disorder - continue sertraline + mirtazapine # fall - PT eval; STR suggested # VTE ppx - rivaroxaban In my clinical judgment, the patient requires continued hospitalization for the following reasons: placement Quality Stroke Does the patient have a stroke diagnosis?: No VTE Prior VTE?: No VTE Risk Level:: Medical - moderate - high VTE Device Contraindication: Treatment Not Indicated VTE Drug Contraindication: N/A - Med Ordered
[2021-09-13 16:40] LABS: Glucose, Whole Blood 115 mg/dL (60-115)
[2021-09-13] MEDS: Acetaminophen 325 MG TABLET 650 MG PO (17:25)
--- NOTE | 2021-09-13 19:57 | PC.NURSE ---
Pt resting comfortably. No needs at this time. Waiting for bed availabilty for admit.
[2021-09-13 20:01] LABS: Glucose, Whole Blood 171 mg/dL (60-115)
--- NOTE | 2021-09-13 20:10 | PC.NURSE ---
PATIENT HAS SMALL BOWEL MOVEMENT ,CARE WAS GIVEN AND BEDDING WAS CHANGE ,PATIENT NOW RESTING IN BED .
[2021-09-13] MEDS: Insulin Lispro 100 UNIT/ML 3 ML VIAL SUBCUT (20:40)
[2021-09-13] MEDS: Latanoprost 0.005 % Ophth Sol 2.5 ML DROPS 1 DROP EYE-RIGHT (21:04)
--- NOTE | 2021-09-13 22:37 | PC.NURSE ---
Report called to Kun in overflow.
--- NOTE | 2021-09-13 23:14 | PC.NURSE ---
PT TO ED OVERFLOW. HE IS DISORIENTED TO PLACE, TIME AND SITUATION. ORIENTED TO SELF. NO ACUTE DISTRESS. O2 SAT 98% ON 2L NC. BP 112/68. MONITOR SHOWS A FIB, RATE 60'S, NO VENT ECTOPY. PT SETTLED IN BED. DENIES PAIN OR ANY COMPLAINTS.
--- NOTE | 2021-09-14 03:02 | PC.NURSE ---
PT TO BE TRANSFERRED TO [facility] 384. REPORT CALLED TO BRIANNA GARZA.
[2021-09-14 07:33] LABS: Glucose, Whole Blood 104 mg/dL (60-115)
[2021-09-14 08:00] VITALS: BP 141/85; PULSE 77; RESP 19; TEMP 36.4; O2SAT 93
[2021-09-14] MEDS: carvediloL 3.125 MG TABLET PO (08:27)
[2021-09-14] MEDS: 0.9 % Sodium Chloride Flush 3 ML SYRINGE IVFLUSH (08:27)
[2021-09-14] MEDS: predniSONE 5 MG TABLET PO (08:27)
[2021-09-14] MEDS: Atorvastatin Calcium 40 MG TABLET PO (08:27)
[2021-09-14] MEDS: lisinopriL 10 MG TABLET PO (08:27)
[2021-09-14] MEDS: Isosorbide Mononitrate 30 MG TAB.ER.24H PO (08:27)
[2021-09-14] MEDS: Sertraline HCL 25 MG TABLET PO (08:27)
[2021-09-14 09:20] LABS: Adenovirus PCR Not Detected (Not Detect.); Bordetella parapertussis PCR Not Detected (Not Detect.); Bordetella pertussis PCR Not Detected (Not Detect.); Chlamydia pneumoniae PCR Not Detected (Not Detect.); Coronavirus 229E PCR Not Detected (Not Detect.); Coronavirus HKU1 PCR Not Detected (Not Detect.); Coronavirus NL63 PCR Not Detected (Not Detect.); Coronavirus OC43 PCR Not Detected (Not Detect.); Human metapneumovirus PCR Not Detected (Not Detect.); Influenza A PCR Not Detected (Not Detect.); Influenza B PCR Not Detected (Not Detect.); Mycoplasma pneumoniae PCR Not Detected (Not Detect.); Parainfluenza 1 PCR Not Detected (Not Detect.); Parainfluenza 2 PCR Not Detected (Not Detect.); Parainfluenza 3 PCR Not Detected (Not Detect.); Parainfluenza 4 PCR Not Detected (Not Detect.); RSV PCR Not Detected (Not Detect.); Rhino/Enterovirus PCR Not Detected (Not Detect.); SARS-CoV-2 PCR Not Detected (Not Detect.)
[2021-09-14 11:44] LABS: Glucose, Whole Blood 143 mg/dL (60-115)
[2021-09-14 11:49] VITALS: BP 121/58; PULSE 71; RESP 18; TEMP 36.6; O2SAT 93
--- NOTE | 2021-09-14 12:14 | MHC.CM.PN ---
PATIENT TO TRANSFER TO [facility] FOR [address] [facility] AND UNIT AWARE OF PLAN. PATIENT AWARE OF PLAN
[2021-09-14 13:03] LABS: B Type Natriuretic Peptide 817 pg/mL (<100)
[2021-09-14 13:14] LABS: Anion Gap 11 (12-20); Blood Urea Nitrogen 17 mg/dL (9-16); Carbon Dioxide 27 mmol/L (22-29); Chloride 99 mmol/L (96-108); Creatinine Clr Calc Pharmacy 81.6; Estimated Glomerular Filt Rate > 60; Glucose Random 152 mg/dL (60-115); Potassium 3.6 mmol/L (3.3-5.1); Sodium 133 mmol/L (135-145)
--- NOTE | 2021-09-14 13:30 | P.DS_ITS ---
DS: Providers Provider Date of Service: 09/14/21 Date of admission: 09/12/21 23:05 Date of discharge: 09/14/21 Primary care physician: Unknown Physician DS: Diagnosis Discharge Diagnosis (1) Fall: Status: Acute (2) Chest pain: Status: Acute DS: Summary Hospital Course Hospital Course: 76-year-old male past medical history significant for hypertension, diabetes, CAD, CKD presenting to the emergency department with complaints of left-sided pain status post trip and fall just prior to his arrival.? Patient tells me he was walking on his deck around around table, when he tripped on his neighbors knee falling onto the left side of his body.? He tells me after he fell he was unable to get up without assistance.? He tells me he did not hit his head or lose consciousness when this happened.? When I asked patient if he had preceding symptoms he is very vague in says my left chest was bothering me, he tells me there is a discomfort localized to the left chest that does not radiate he tells me that the discomfort is constant in nature but at time it increases.? Patient tells me he is on anticoagulation initially he tells me he is on Coumadin however then he tells me he is not sure of a disc Coumadin.? He denies shortness of breath, nausea, vomiting, abdominal pain, fevers, chills, dizziness, headache, neck pain. Hospital Course Admitted to general medical floor. Troponins negative; chest pain atypical. Developed acute urinary retention and a Delcid was placed. At this point in time and has been deemed a mechanical fall without any other soquel eye. He he was seen by Physical therapy who deemed him a candidate for short-term rehab. He will be discharged to SNF for aggressive rehab and can undergo voiding trial at facility Time Spent with Patient Time attestation: Total time spent providing and/or coordinating discharge services: Discharge coordination time: Greater than 30 minutes Quality: Safe Use of Opioids Does Pt have an Active Cancer Diagnosis on the Problem List?: No Quality: Stroke Does the patient have a stroke diagnosis?: No Physical Exam Vital Signs: Vital Signs: Last Vital Signs Temp 97.8 F 09/14/21 11:49 Pulse 71 09/14/21 11:49 Resp 18 09/14/21 11:49 BP 121/58 L 09/14/21 11:49 Pulse Ox 93 09/14/21 11:49 BMI result Body Mass Index 24.3 Const: Other: Awake alert forgetful Resp: Other: Clear to auscultation bilaterally no rales rhonchi or wheezes Cardio: Other: No S4; positive S1-S2; no S3 murmurs rubs gallops GI: Other: Soft nontender nondistended with normoactive bowel sounds Extrem: Other: No edema bilaterally DS: Data Data Completed and Pending Labs on day of discharge: Laboratory Results - last 24 hr 09/13/21 09/13/21 09/13/21 16:34 19:56 20:20 Sodium Potassium Chloride Carbon Dioxide Anion Gap BUN Creatinine Estim Creat Clear Calc Estimated GFR POC Glucose 115 171 H Random Glucose Calcium B-Natriuretic Peptide Respiratory Panel I[facility] See Note Adenovirus (Rapid PCR) Not Detected B.pert (TEM-PCR) Not Detected B.parapertussis DNA PCR Not Detected C. pneumoniae DNA (PCR) Not Detected Coronavirus OC43 (PCR) Not Detected Coronavirus HKU1 (PCR) Not Detected Coronavirus 229E (PCR) Not Detected Coronavirus NL63 (PCR) Not Detected Human Metapneumovir PCR Not Detected Influenza A (RT-PCR) Not Detected Influenza B (RT-PCR) Not Detected M. pneumoniae (PCR) Not Detected Parainfluenza 1 (PCR) Not Detected Parainfluenza 2 (PCR) Not Detected Parainfluenza 3 (PCR) Not Detected Parainfluenza 4 (PCR) Not Detected RSV (PCR) Not Detected Entero/Rhino (PCR) Not Detected SARS-CoV-2 RNA (RT-PCR) Not Detected 09/14/21 09/14/21 09/14/21 07:28 11:29 12:31 Sodium 133 L Potassium 3.6 Chloride 99 Carbon Dioxide 27 Anion Gap 11 L BUN 17 H D Creatinine 0.77 Estim Creat Clear Calc 81.6 Estimated GFR > 60 POC Glucose 104 143 H Random Glucose 152 H D Calcium 9.0 B-Natriuretic Peptide Respiratory Panel [place] Adenovirus (Rapid PCR) B.pert (TEM-PCR) B.parapertussis DNA PCR C. pneumoniae DNA (PCR) Coronavirus OC43 (PCR) Coronavirus HKU1 (PCR) Coronavirus 229E (PCR) Coronavirus NL63 (PCR) Human Metapneumovir PCR Influenza A (RT-PCR) Influenza B (RT-PCR) M. pneumoniae (PCR) Parainfluenza 1 (PCR) Parainfluenza 2 (PCR) Parainfluenza 3 (PCR) Parainfluenza 4 (PCR) RSV (PCR) Entero/Rhino (PCR) SARS-CoV-2 RNA (RT-PCR) 09/14/21 12:31 Sodium Potassium Chloride Carbon Dioxide Anion Gap BUN Creatinine Estim Creat Clear Calc Estimated GFR POC Glucose Random Glucose Calcium B-Natriuretic Peptide 817 H Respiratory Panel [place] Adenovirus (Rapid PCR) B.pert (TEM-PCR) B.parapertussis DNA PCR C. pneumoniae DNA (PCR) Coronavirus OC43 (PCR) Coronavirus HKU1 (PCR) Coronavirus 229E (PCR) Coronavirus NL63 (PCR) Human Metapneumovir PCR Influenza A (RT-PCR) Influenza B (RT-PCR) M. pneumoniae (PCR) Parainfluenza 1 (PCR) Parainfluenza 2 (PCR) Parainfluenza 3 (PCR) Parainfluenza 4 (PCR) RSV (PCR) Entero/Rhino (PCR) SARS-CoV-2 RNA (RT-PCR) Discharge Plan Discharge Patient Disposition: [facility] Discharge Diagnosis: Mechanical Fall Referrals: [facility] [Outside] - 1 Week Physician,Unknown J [Primary Care Provider] - 1 Week Discharge Medications: Continued latanoprost 0.005 % drops 1 drp ophthalmic-Right BEDTIME 0RF carvedilol 6.25 mg tablet 0.5 tab PO BID 0RF isosorbide mononitrate 30 mg tablet extended release 24 hr 1 tab PO DAILY 0RF prednisone 5 mg tablet 1 tab PO QAM 0RF tramadol 50 mg tablet 1 tab PO Q6H PRN (Reason: Pain) 0RF nitroglycerin 0.4 mg tablet, sublingual 0.4 mg sublingual DAILY PRN (Reason: Chest Pain) 0RF sertraline 25 mg tablet 1 tab PO DAILY 0RF lisinopril 5 mg tablet 2 tab PO DAILY 0RF mirtazapine 15 mg tablet 1 tab PO BEDTIME 0RF rosuvastatin 10 mg tablet 1 tab PO DAILY 0RF Alphagan P 0.1 % drops 1 drp ophthalmic-Right DAILY 0RF Xarelto 20 mg tablet 1 tab PO QPM 0RF Discharge Orders: Discharge Order (Routine); Ordered 09/14/21 Ordered By: Mahin Wright Diet: advance to usual diet Activity on Discharge: As tolerated Stand Alone Forms: Patient Portal Discharge page Care Plan Goals: Resume all current meds as before hospitalization Health Concerns: Maintain highest level of function Plan of Treatment: Physical therapy as per receiving facility Assessment: See discharge summary
[2021-09-14] MEDS: Acetaminophen 325 MG TABLET 650 MG PO (13:56)
[2021-09-15 08:03] LABS: Hepatitis A Antibody IgM 0.18 Index (0-0.79); ~Hepatitis A Antibody IgM Nonreactive (Nonreactive)
== END 2021-09-14 17:34 | disposition skilled nursing facility (03) ==
LOC: HO.ED 22:52 → HO.EDOVER 23:17 → HO.S3 09-14 00:23
PROVIDERS: Family Medicine; Physician Assistant; Admitting Provider Hospitalist; Emergency Provider Internal Medicine; PCP Internal Medicine; Visit Provider Hospitalist
DX: R07.9 Chest pain, unspecified (principal); I48.91 Unspecified atrial fibrillation; I48.92 Unspecified atrial flutter; I51.7 Cardiomegaly; S29.011A Strain of muscle and tendon of front wall of thorax, initial encounter; S39.011A Strain of muscle, fascia and tendon of abdomen, initial encounter; W01.198A Fall on same level from slipping, tripping and stumbling with subsequent striking against other object, initial encounter; Y93.89 Activity, other specified; Y92.038 Other place in apartment as the place of occurrence of the external cause; Y99.8 Other external cause status; E11.22 Type 2 diabetes mellitus with diabetic chronic kidney disease; I25.2 Old myocardial infarction; I25.10 Atherosclerotic heart disease of native coronary artery without angina pectoris; I12.9 Hypertensive chronic kidney disease with stage 1 through stage 4 chronic kidney disease, or unspecified chronic kidney disease; N18.9 Chronic kidney disease, unspecified; E87.0 Hyperosmolality and hypernatremia; R74.01 Elevation of levels of liver transaminase levels; R74.8 Abnormal levels of other serum enzymes; E78.5 Hyperlipidemia, unspecified; R33.8 Other retention of urine; R10.812 Left upper quadrant abdominal tenderness; R10.814 Left lower quadrant abdominal tenderness; J98.2 Interstitial emphysema; J92.9 Pleural plaque without asbestos; M06.9 Rheumatoid arthritis, unspecified; Z20.822 Contact with and (suspected) exposure to COVID-19; Z91.81 History of falling; Z96.643 Presence of artificial hip joint, bilateral; Z79.82 Long term (current) use of aspirin; Z79.4 Long term (current) use of insulin; Z79.01 Long term (current) use of anticoagulants; Z79.899 Other long term (current) drug therapy
CPT/HCPCS: 36415; 70450; 71250; 72125; 74176; 80048; 80053; 80076; 81001; 81003; 82803; 82947; 83036; 83735; 83880; 84484; 85025; 85610; 86704; 86706; 86709; 86803; 87340; 87633; 87635; 93005; 96374; 96375; 97116; 97162; 97530; 99218; 99285; J1940

== ENCOUNTER 2021-09-18 10:04 | Emergency (ER) | payer MEDICARE, OTHER, SELFPAY ==
--- NOTE | ~2021-09-18 | XR_ITS ---
EXAMINATION: XR ABDOMEN KUB CLINICAL INDICATION: Abdominal pain. COMPARISON: None TECHNIQUE: AP view of the abdomen. FINDINGS: The bowel gas pattern is nonspecific. There is no cardiomegaly or radiopaque calculi. There is bilateral hip prosthesis. There is degenerative disc changes and spondylosis throughout lumbar spine. XR/XR KUB IMPRESSION: No acute process seen.
--- NOTE | ~2021-09-18 | XR_ITS ---
EXAMINATION: XR SHOULDER, LEFT CLINICAL INFORMATION: Left shoulder pain COMPARISON: None TECHNIQUE: AP external rotation, Grashey, scapular Y, and axillary views of the left shoulder. FINDINGS: There is some minimal calcific density lateral to the greater tuberosity. There is mild arthrosis of the acromioclavicular joint. Glenohumeral joint is not well assessed given the projections. No definite arthrosis. XR/XR shoulder LT min 2V IMPRESSION: Mild arthrosis of the acromioclavicular joint. Possible calcific tendinosis Limited evaluation of the glenohumeral joint. No definite arthrosis.
--- NOTE | ~2021-09-18 | CT_ITS ---
EXAMINATION: CT ABDOMEN AND PELVIS WITHOUT CONTRAST CLINICAL INFORMATION: Abdominal pain. COMPARISON: CT of the abdomen and pelvis done on 09/12/2021. TECHNIQUE: Multidetector volumetric imaging was performed from the superior aspect of the liver through the pubic symphysis. Sagittal and coronal reformatted images were obtained on the technologist's workstation. This CT examination was performed using dose optimization techniques as appropriate, variously including the following: *Automated exposure control *Adjustment of mA and/or kV according to patient size (this includes techniques or standardized protocols for targeted exams where dose is matched to indication/reason for exam; i.e. extremities or head) *Use of iterative reconstruction technique DLP: 595 mGy-cm FINDINGS: LUNG BASES: Bibasilar diffuse interlobular septal thickening is noted, likely represent interstitial lung disease, indeterminate etiology, similar to prior study dated 09/12/2021. There is severe cardiomegaly present, unchanged. LIVER, GALLBLADDER, AND BILIARY TREE: The liver is normal in size, shape, and attenuation. No focal hepatic lesion or biliary ductal dilatation is present. Calcified gallstones are present, similar to prior study with no superimposed gallbladder wall thickening or obstruction, unchanged. PANCREAS: Unremarkable. SPLEEN: Unremarkable. ADRENAL GLANDS: Unremarkable. KIDNEYS AND URETERS: The kidneys are normal in size, shape, and attenuation. No hydronephrosis, hydroureter, or calculi seen. No perinephric stranding. BLADDER: Suboptimally visualized due to presence of significant beam hardening artifacts arising from bilateral metallic prosthesis. There is a catheter present. GASTROINTESTINAL TRACT: Colonic diverticulosis related changes are present without any CT features of superimposed acute diverticulitis. There is no evidence of any abnormal bowel dilatation or air-fluid level suspected obstruction. The small bowel loops are decompressed. Stomach is decompressed. The appendix is visualized at right iliac fossa and is unremarkable. ABDOMINAL WALL: No significant hernia is appreciated. LYMPH NODES: There are no pathologically enlarged retroperitoneal, mesenteric, pelvic and/or groin lymphadenopathy present, unchanged. VASCULAR: Diffuse atherosclerotic disease of the aorta and is branches without aneurysm formation, unchanged. PELVIC VISCERA: Evaluation of the pelvis is technically limited due to the hardening artifacts, grossly no evidence of any pelvic mass, free fluid and/or free air present, unchanged. OSSEOUS STRUCTURES: Grade 1 retrolisthesis of L4 over L5 and severe degenerative disc disease at L4-5 and L5-S1 there is evidence of central disc protrusion present at L5-S1. Marked diffuse osteopenia is noted. The visualized part of bilateral metallic hip prosthesis appears intact. CT/CT abdomen pelvis wo con IMPRESSION: 1. No CT evidence of any acute intra-abdominal and/or intrapelvic pathology is present. 2. No significant change since most recent prior CT of the abdomen and pelvis done on 09/12/2021. Fleischner guidelines were followed.
[2021-09-18 10:09] VITALS: BP 139/79; BP 148/92; PULSE 55; PULSE 66; RESP 24; TEMP 36.6; O2SAT 93; O2SAT 96; BMI 24.5
--- NOTE | 2021-09-18 10:21 | ED_ITS ---
HPI - General Adult General Chief complaint: Abdominal Pain Stated complaint: CHILLS,LLQ PAIN FOR DAYS FROM SNF PER EMS Time Seen by Provider: 09/18/21 10:21 Source: patient and EMS Mode of arrival: EMS Limitations: altered mental status (confused at baseline) History of Present Illness HPI narrative: Patient is a 76 year old male presenting to the emergency department today with abdominal pain. Patient states that he is having intermittent abdominal pain. Patient also states that his left shoulder has been bothering him more than usual. Patient states that his left shoulder always hurts but it's different today. SNF staff states that the patient has also been hypertensive. Patient's son states that the patient has dementia at baseline and is always some what confused. Patient denies any dizziness, lightheadedness, nausea, vomiting, fever, chills, blurry vision, double vision, loss of vision, chest pain, difficulty breathing, shortness of breath, back pain, night sweats, pain with urination, increased urinary frequency, increased urinary urgency, blood in his urine or stool, syncope or a near syncopal episode, recent trauma or falls, bowel incontinence, bladder incontinence, bowel retention, bladder retention, or any other complaints at this time. Onset (ago): day(s) Location: abdomen Radiation: non-radiation Severity: mild Severity scale (1-10): 3 Quality: dull Pain Consistency: intermittent Relieving factors: none Exacerbating factors: none Associated symptoms: denies other symptoms Treatments prior to arrival: none Related Data Home Medications Medication Instructions Recorded Confirmed brimonidine 0.1 % eye drops 1 drp OPHTHALMIC-RIGHT DAILY 09/12/21 09/12/21 (Alphagan P) carvedilol 6.25 mg tablet 0.5 tab PO BID 09/12/21 09/12/21 isosorbide mononitrate 30 mg 1 tab PO DAILY 09/12/21 09/12/21 tablet,extended release 24 hr latanoprost 0.005 % eye drops 1 drp OPHTHALMIC-RIGHT BEDTIME 09/12/21 09/12/21 lisinopril 5 mg tablet 2 tab PO DAILY 09/12/21 09/12/21 mirtazapine 15 mg tablet 1 tab PO BEDTIME 09/12/21 09/12/21 nitroglycerin 0.4 mg sublingual 0.4 mg SUBLINGUAL DAILY PRN 09/12/21 09/12/21 tablet prednisone 5 mg tablet 1 tab PO QAM 09/12/21 09/12/21 rivaroxaban 20 mg tablet (Xarelto) 1 tab PO QPM 09/12/21 09/12/21 rosuvastatin 10 mg tablet 1 tab PO DAILY 09/12/21 09/12/21 sertraline 25 mg tablet 1 tab PO DAILY 09/12/21 09/12/21 tramadol 50 mg tablet 1 tab PO Q6H PRN 09/12/21 09/12/21 Allergies Allergy/AdvReac Type Severity Reaction Status Date / Time Unable to Assess Allergy Unverified 09/12/21 16:09 Review of Systems Constitutional: Constitutional: Reports no additional constitutional complaints, Denies chills, Denies fever(s) and Denies night sweats Eyes: Eyes: Reports no additional eye complaints, Denies blurry vision, Denies change in vision, Denies diplopia, Denies eye discharge, Denies loss of vision and Denies eye pain ENT: Denies dizziness Cardiovascular: Cardiovascular: Reports no additional cardiovascular complaints, Denies chest pain, Denies lightheadedness, Denies Loss of Consciousness and Denies dyspnea Respiratory: Respiratory: Reports no additional respiratory complaints and Denies dyspnea Gastrointestinal: Gastrointestinal: Reports no additional gastrointestinal complaints, Reports abdominal pain, Denies melena, Denies hematochezia, Denies change in bowel habits and Denies change in stool character Genitourinary: Genitourinary: Reports no additional male genitourinary complaints, Denies hematuria, Denies oliguria, Denies difficulty urinating, Denies dysuria, Denies urinary frequency, Denies urinary hesitancy, Denies u rinary incontinence and Denies urinary urgency Musculoskeletal: Musculoskeletal: Reports no additional musculoskeletal complaints, Denies numbness and Denies tingling Neurologic: Denies dizziness, Denies loss of vision, Denies numbness and Denies tingling Psychiatric: Psychiatric: Reports no additional psychiatric complaints Endocrine: Endocrine: Reports no additional endocrine complaints Hematologic/Lymphatic: Hematologic/Lymphatic: Reports no additional hematologic/lymphatic complaints Allergic/Immunologic: Allergic/Immunologic: Reports no additional allergic/immunologic complaints PMFSH Past Medical History Attestation statement: The following information was validated with the patient. Source: old records reviewed Social History Social History (Reviewed 05/21/22 @ 16:00 by GABY Lisa Alcohol intake: former Patient Tobacco Use Status: Never used Tobacco Use of substances other than those prescribed or required for medical reasons: No Advance Directives: Yes Advance Directives on File: Yes Advance Directives Date on File: 09/13/21 service: No Current occupational status: retired Physical Exam ED Vital Signs: Vital Signs - 24 hr 09/18/21 10:09 Temperature 97.8 F Pulse Rate 55 Respiratory Rate 24 H Blood Pressure 139/79 Pulse Oximetry 96 BMI result Body Mass Index 24.5 Const General: cooperative, no acute distress, alert and awake Nutritional Appearance: well nourished Orientation/consciousness: patient oriented x3 Limitations: no limitations HENMT Head: Yes normal to inspection and Yes atraumatic Ears: hearing grossly normal bilaterally and external ears normal General nose exam: Normal external nose present, no nasal discharge noted and no epistaxis Face and sinus: Yes normal facial exam, No abrasion and No laceration Mouth: Normal oral and palatal mucosa present, no drooling and no muffled voice Eyes General: appearance normal, both eyes and all related structures Periorbital: periorbital findings normal Eyelids: Yes eyelids normal Conjunctivae: conjunctivae normal Pupils: Equal, round and reactive pupils present EOM: EOMs intact bilaterally Neck Neck: Yes normal visual inspection, Yes full ROM and Yes no lymphadenopathy Chest Chest palpation & inspection: normal inspection of the chest Resp Effort & Inspection: normal respiratory effort and able to speak in complete sentences Auscultation: clear to auscultation bilaterally Cardio Rate: regular rate Rhythm: regular rhythm GI Inspection: Yes normal to inspection Neuro General: patient oriented x3 and moves all extremities Cranial nerves: Yes Equal, round and reactive pupils present Cognition (Neuro): normal cognition Motor exam (neuro): 5/5 motor strength present throughout Sensory Exam: Normal double simultaneous stimulation for sensation Coordination: [id number] test normal Extrem General: Yes normal to inspection, Yes full ROM and Yes capillary refill normal Psych Appearance: grossly normal Mental Status: mental status grossly normal Affect: normal affect Attitude: cooperative Thought process: Normal thought process present Thought content: Normal thought content present Insight: Good insight present (Psych) Medical Decision Making MDM Narrative Medical decision making narrative: Patient is a 76 year old male presenting to the emergency department today with intermittent abdominal pain. Patient's physical exam was unremarkable. Patient's blood work showed elevated LFTs and slightly elevated BNP compared to his discharge but was otherwise unremarkable. Patient's urine showed no acute process. Patient's EKG was unremarkable. Patient's KUB and left shoulder x-rays showed no acute process. Patient's abdominal CT showed no acute process. Patient's LFTs are chronically elevated secondary to alcoholism. Patient's tropo gallo is also chronically elevated. Patient has a very mild hyponatremia at 134. I do not believe this patient to be having an acute CHF exacerbation or any intrabdominal process. I explained my physical exam findings as well as all test results to the patient and the patient's son. I answered all questions asked by the patient and the patient's son. I stressed the importance of the patient taking his medication as prescribed. I stressed the importance of the patient following up with his primary care provider. I stressed the importance of the patient returning to the emergency department immediately if his symptoms were to worsen or if he were to develop any dizziness, shortness of breath, di fficulty breathing, chest pain, blurry vision, loss of vision, nausea, vomiting, abdominal pain, fever, chills, back pain, or any other complaints. Patient and the patient's son verbalized agreement and understanding with this treatment plan and discharge. Differential Diagnosis Differential Diagnosis: abdominal pain, shoulder pain, generalized pain Medical Records Medical records reviewed: Yes I reviewed the patient's medical records. Lab Data Lab results reviewed: Yes I reviewed the patient's lab results. Result diagrams: 09/18/21 11:15 09/18/21 11:15 Labs: Lab Results 09/18/21 09/18/21 09/18/21 Range/Units 11:15 11:15 11:15 WBC 6.4 (4.8-10.8) X10*3/uL RBC 4.49 L (4.60-5.80) X10*6/uL Hgb 13.0 L (14.0-18.0) g/dl Hct 40.5 L (42.0-52.0) % MCV 90.2 (80.0-98.0) fL MCH 29.0 (27.0-33.0) pg MCHC 32.1 (31.0-36.0) g/dl RDW 15.7 (11.0-16.0) % Plt Count 205 D (160-400) X10*3/uL MPV 11.3 (9.4-12.4) fL Immature Gran % (Auto) 0.8 H (0.0-0.4) % Neut % (Auto) 77.3 H (45-73) % Lymph % (Auto) 4.4 L (20-40) % [place] % (Auto) 6.7 (2-11) % Eos % (Auto) 10.0 H (0-4) % Baso % (Auto) 0.8 (0-2) % Lymph # (Auto) 0.3 L (1.2-4.9) X10*3/uL [place] # (Auto) 0.4 (0.1-1.2) X10*3/uL Eos # (Auto) 0.6 H (0.0-0.4) X10*3/uL Baso # (Auto) 0.1 (0.0-0.2) X10*3/uL Abs Immat Gran (auto) 0.05 H (0.00-0.03) X10*3/uL Absolute Neuts (auto) 4.9 (2.0-8.3) x10*3/uL Absolute Nucleated RBC 0.000 (0.0-0.012) X10*3/uL Nucleated RBC % (auto) 0.0 (0.0-0.2) /100WBC Sodium 134 L (135-145) mmol/L Potassium 3.7 (3.3-5.1) mmol/L Chloride 102 (96-108) mmol/L Carbon Dioxide 25 (22-29) mmol/L Anion Gap 11 L (12-20) BUN 14 (9-16) mg/dL Creatinine 0.76 (0.5-1.4) mg/dL Estim Creat Clear Calc 82.7 Estimated GFR > 60 Random Glucose 101 (60-115) mg/dL Lactic Acid 1.3 (0.5-2.0) mmol/L Calcium 9.4 (8.4-10.2) mg/dL Total Bilirubin 2.2 H (0.0-1.0) mg/dL AST 64 H (5-37) U/L ALT 76 H (0-40) U/L Alkaline Phosphatase 492 H D (39-117) U/L Troponin I High Sens (<3.5-35.0) ng/L B-Natriuretic Peptide (<100) pg/mL Total Protein 7.6 D (6.5-8.0) g/dL Albumin 3.4 L (3.5-5.0) g/dL Lipase 39 (8-78) U/L Urine Color Urine Appearance Urine pH (5.0-8.0) Ur Specific [place] (1.005-1.025) Urine Protein (NEG-TRACE) MG/DL Urine Glucose (UA) (NEG) MG/DL Urine Ketones (NEG) MG/DL Urine Blood (NEG) Urine Nitrite (NEG) Ur Leukocyte Esterase (NEG) Urine RBC (0) /HPF Urine WBC (0-4) /HPF Ur Squamous Epith Cells /LPF Calcium Oxalate Crystal /LPF Urine Bacteria /LPF Urine Mucus /LPF 09/18/21 09/18/21 Range/Units 11:15 14:35 WBC (4.8-10.8) X10*3/uL RBC (4.60-5.80) X10*6/uL Hgb (14.0-18.0) g/dl Hct (42.0-52.0) % MCV (80.0-98.0) fL MCH (27.0-33.0) pg MCHC (31.0-36.0) g/dl RDW (11.0-16.0) % Plt Count (160-400) X10*3/uL MPV (9.4-12.4) fL Immature Gran % (Auto) (0.0-0.4) % Neut % (Auto) (45-73) % Lymph % (Auto) (20-40) % [place] % (Auto) (2-11) % Eos % (Auto) (0-4) % Baso % (Auto) (0-2) % Lymph # (Auto) (1.2-4.9) X10*3/uL [place] # (Auto) (0.1-1.2) X10*3/uL Eos # (Auto) (0.0-0.4) X10*3/uL Baso # (Auto) (0.0-0.2) X10*3/uL Abs Immat Gran (auto) (0.00-0.03) X10*3/uL Absolute Neuts (auto) (2.0-8.3) x10*3/uL Absolute Nucleated RBC (0.0-0.012) X10*3/uL Nucleated RBC % (auto) (0.0-0.2) /100WBC Sodium (135-145) mmol/L Potassium (3.3-5.1) mmol/L Chloride (96-108) mmol/L Carbon Dioxide (22-29) mmol/L Anion Gap (12-20) BUN (9-16) mg/dL Creatinine (0.5-1.4) mg/dL Estim Creat Clear Calc Estimated GFR Random Glucose (60-115) mg/dL Lactic Acid (0.5-2.0) mmol/L Calcium (8.4-10.2) mg/dL Total Bilirubin (0.0-1.0) mg/dL AST (5-37) U/L ALT (0-40) U/L Alkaline Phosphatase (39-117) U/L Troponin I High Sens 37.9 H (<3.5-35.0) ng/L B-Natriuretic Peptide 945 H (<100) pg/mL Total Protein (6.5-8.0) g/dL Albumin (3.5-5.0) g/dL Lipase (8-78) U/L Urine Color YELLOW Urine Appearance HAZY Urine pH 6.0 (5.0-8.0) Ur Specific [place] 1.025 (1.005-1.025) Urine Protein 2+ H (NEG-TRACE) MG/DL Urine Glucose (UA) NEG (NEG) MG/DL Urine Ketones NEG (NEG) MG/DL Urine Blood 3+ H (NEG) Urine Nitrite NEG (NEG) Ur Leukocyte Esterase NEG (NEG) Urine RBC 10-14 H (0) /HPF Urine WBC 1-4 (0-4) /HPF Ur Squamous Epith Cells 1+ /LPF Calcium Oxalate Crystal TRACE /LPF Urine Bacteria NONE /LPF Urine Mucus TRACE /LPF Imaging Data CT scan - abdomen: Attestation: I personally reviewed and interpreted this imaging study as follows: My impression: No acute process. Radiologist's impression: EXAMINATION: CT ABDOMEN AND PELVIS WITHOUT CONTRAST? CLINICAL INFORMATION: Abdominal pain.? COMPARISON: CT of the abdomen and pelvis done on 09/12/2021.? TECHNIQUE: Multidetector volumetric imaging was performed from the superior aspect of the liver through the pubic symphysis. Sagittal and coronal reformatted images were obtained on the technologist's workstation.? This CT examination was performed using dose optimization techniques as appropriate, variously including the following: *Automated exposure control *Adjustment of mA and/or kV according to patient size (this includes techniques or standardized protocols for targeted exams where dose is matched to indication/reason for exam; i.e. extremities or head) *Use of iterative reconstruction technique DLP: 595 mGy-cm FINDINGS: LUNG BASES: Bibasilar diffuse interlobular septal thickening is noted, likely represent interstitial lung disease, indeterminate etiology, similar to prior study dated 09/12/2021. There is severe cardiomegaly present, unchanged.? LIVER, GALLBLADDER, AND BILIARY TREE: The liver is normal in size, shape, and attenuation. No focal hepatic lesion or biliary ductal dilatation is present. Calcified gallstones are present, similar to prior study with no superimposed gallbladder wall thickening or obstruction, unchanged.? PANCREAS: Unremarkable.? SPLEEN: Unremarkable.? ADRENAL GLANDS: Unremarkable.? KIDNEYS AND URETERS: The kidneys are normal in size, shape, and attenuation. No hydronephrosis, hydroureter, or calculi seen. No perinephric stranding. ? BLADDER: Suboptimally visualized due to presence of significant beam hardening artifacts arising from bilateral metallic prosthesis. There is a catheter present. GASTROINTESTINAL TRACT: Colonic diverticulosis related changes are present without any CT features of superimposed acute diverticulitis. There is no evidence of any abnormal bowel dilatation or air-fluid level suspected obstruction. The small bowel loops are decompressed. Stomach is decompressed. The appendix is visualized at right iliac fossa and is unremarkable. ABDOMINAL WALL: No significant hernia is appreciated.? LYMPH NODES: There are no pathologically enlarged retroperitoneal, mesenteric, pelvic and/or groin lymphadenopathy present, unchanged. VASCULAR: Diffuse atherosclerotic disease of the aorta and is branches without aneurysm formation, unchanged. PELVIC VISCERA: Evaluation of the pelvis is technically limited due to the hardening artifacts, grossly no evidence of any pelvic mass, free fluid and/or free air present, unchanged.? OSSEOUS STRUCTURES: Grade 1 retrolisthesis of L4 over L5 and severe degenerative disc disease at L4-5 and L5-S1 there is evidence of central disc protrusion present at L5-S1. Marked diffuse osteopenia is noted. The visualized part of bilateral metallic hip prosthesis appears intact.? CT/CT abdomen pelvis wo con IMPRESSION: ? 1. No CT evidence of any acute intra-abdominal and/or intrapelvic pathology is present. 2. No significant change since most recent prior CT of the abdomen and pelvis done on 09/12/2021. ? Fleischner guidelines were followed. Dictated By: Daija Kennedy MD Signed By: Electronically signed by Daija Kennedy MD 09/18/21 1254 Left shoulder x-ray: Attestation: I personally reviewed and interpreted this imaging study as follows: Radiologist's impression: EXAMINATION: XR SHOULDER, LEFT CLINICAL INFORMATION: Left shoulder pain? COMPARISON: None? TECHNIQUE: AP external rotation, Grashey, scapular Y, and axillary views of the left shoulder. FINDINGS: There is some minimal calcific density lateral to the greater tuberosity. There is mild arthrosis of the acromioclavicular joint. Glenohumeral joint is not well assessed given the projections. No definite arthrosis. XR/XR shoulder LT min 2V IMPRESSION: Mild arthrosis of the acromioclavicular joint. ? Possible calcific tendinosis ? Limited evaluation of the glenohumeral joint. No definite arthrosis. Dictated By: lAy Roca MD Signed By: Electronically signed by Aly Roca MD 09/18/21 1059 Abdominal x-ray: Attestation: I personally reviewed and interpreted this imaging study as follows: My impression: No acute process. Radiologist's impression: EXAMINATION: XR ABDOMEN KUB CLINICAL INDICATION: Abdominal pain.? COMPARISON: None? TECHNIQUE: AP view of the abdomen. FINDINGS: The bowel gas pattern is nonspecific. There is no cardiomegaly or radiopaque calculi. There is bilateral hip prosthesis. There is degenerative disc changes and spondylosis throughout lumbar spine. XR/XR KUB IMPRESSION: No acute process seen. Dictated By: Sj Pérez MD Signed By: Electronically signed by Sj Pérez MD 09/18/21 1114 ECG Data Attestation: I personally reviewed and interpreted this ECG as follows: Prior ECG tracings: available for review Interpretation: Vent. Rate: 065 BPM ? ? Atrial Rate: 202 BPM P-R Int: 000 ms? QRS Dur: 124 ms QT Int: 430 ms ? ? ? P-R-T Axes: 000 -59 110 degrees QTc Int: 447 ms ? Undetermined rhythm Left axis deviation Left ventricular hypertrophy with QRS widening and repolarization abnormality ( R in aVL , [place] product , Romhilt-Tovar ) Possible Lateral infarct (cited on or before 12-SEP-2021) Abnormal ECG When compared with ECG of 12-SEP-2021 18:02, Current undetermined rhythm precludes rhythm comparison, needs review DD/ 1620 Discharge Plan Discharge Clinical Impression: Abdominal pain, Acute shoulder pain, Acute hyponatremia Patient Disposition: er [facility] Transfer Details: Going back to SNF Instructions: Abdominal Pain (ED) Additional Instructions: Follow up with your primary care provider. Return to the emergency department immediately if your symptoms worsen or if you develop any dizziness, shortness of breath, difficulty breathing, chest pain, blurry vision, loss of vision, nausea, vomiting, abdominal pain, fever, chills, back pain, or any other complaints. Prescriptions: No Action latanoprost 0.005 % drops 1 drp ophthalmic-Right BEDTIME 0RF carvedilol 6.25 mg tablet 0.5 tab PO BID 0RF isosorbide mononitrate 30 mg tablet extended release 24 hr 1 tab PO DAILY 0RF prednisone 5 mg tablet 1 tab PO QAM 0RF tramadol 50 mg tablet 1 tab PO Q6H PRN (Reason: Pain) 0RF nitroglycerin 0.4 mg tablet, sublingual 0.4 mg sublingual DAILY PRN (Reason: Chest Pain) 0RF sertraline 25 mg tablet 1 tab PO DAILY 0RF lisinopril 5 mg tablet 2 tab PO DAILY 0RF mirtazapine 15 mg tablet 1 tab PO BEDTIME 0RF rosuvastatin 10 mg tablet 1 tab PO DAILY 0RF Alphagan P 0.1 % drops 1 drp ophthalmic-Right DAILY 0RF Xarelto 20 mg tablet 1 tab PO QPM 0RF Referrals: [facility] Family Medicine [Provider Group] [facility] [Provider Group] [facility] [Provider Group] Print Language: Persian
[2021-09-18 11:23] LABS: Basophils Absolute Auto 0.1 X10*3/uL (0.0-0.2); Basophils Percent Auto 0.8 % (0-2); Eosinophils Absolute Auto 0.6 X10*3/uL (0.0-0.4); Hematocrit 40.5 % (42.0-52.0); Imm Gran Abs Auto 0.05 X10*3/uL (0.00-0.03); Imm Gran Pct Auto 0.8 % (0.0-0.4); Lymphocytes Absolute Auto 0.3 X10*3/uL (1.2-4.9); Lymphocytes Percent Auto 4.4 % (20-40); MANUAL DIFF FLAG NO; Mean Corpuscular HGB Conc 32.1 g/dl (31.0-36.0); Mean Corpuscular Volume 90.2 fL (80.0-98.0); Mean Platelet Volume 11.3 fL (9.4-12.4); Monocytes Absolute Auto 0.4 X10*3/uL (0.1-1.2); Monocytes Percent Auto 6.7 % (2-11); Neutrophils Absolute Auto 4.9 x10*3/uL (2.0-8.3); Neutrophils Percent Auto 77.3 % (45-73); Platelet Count 205 X10*3/uL (160-400); Red Blood Count 4.49 X10*6/uL (4.60-5.80); Red Cell Distribution Width 15.7 % (11.0-16.0); White Blood Count 6.4 X10*3/uL (4.8-10.8)
[2021-09-18 11:35] LABS: Lactic Acid 1.3 mmol/L (0.5-2.0)
--- NOTE | 2021-09-18 11:37 | PC.NURSE ---
conctact son dannielle @ [phone] with questions
[2021-09-18 11:45] LABS: Alanine Aminotransferase 76 U/L (0-40); Albumin Level 3.4 g/dL (3.5-5.0); Alkaline Phosphatase 492 U/L (39-117); Anion Gap 11 (12-20); Aspartate Amino Transferase 64 U/L (5-37); Bilirubin Total 2.2 mg/dL (0.0-1.0); Blood Urea Nitrogen 14 mg/dL (9-16); Calcium 9.4 mg/dL (8.4-10.2); Carbon Dioxide 25 mmol/L (22-29); Chloride 102 mmol/L (96-108); Creatinine Clr Calc Pharmacy 82.7; Estimated Glomerular Filt Rate > 60; Glucose Random 101 mg/dL (60-115); Lipase 39 U/L (8-78); Potassium 3.7 mmol/L (3.3-5.1); Sodium 134 mmol/L (135-145); Total Protein 7.6 g/dL (6.5-8.0)
[2021-09-18 11:51] LABS: B Type Natriuretic Peptide 945 pg/mL (<100); Troponin-I High Sensitivity 37.9 ng/L (<3.5-35.0)
[2021-09-18] MEDS: 0.9 % Sodium Chloride 500 ML IV (14:27)
[2021-09-18 14:49] LABS: Appearance Urine HAZY; Color Urine YELLOW; Glucose Urine UA NEG (NEG); Leukocyte Esterase Urine NEG (NEG); Nitrite Urine NEG (NEG); Specific Gravity - Urine 1.025 (1.005-1.025); UACC Culture Trigger NO; Urine Blood 3+ (NEG); Urine Ketones NEG (NEG); Urine Protein 2+ MG/DL (NEG-TRACE)
[2021-09-18 15:11] LABS: Calcium Oxalate Crystals Urine TRACE /LPF; Mucus Urine TRACE /LPF; Squamous Epithelial Cell Urine 1+ /LPF
--- NOTE | 2021-09-18 15:43 | PC.NURSE ---
report called to María at [facility] at this time. son also contacted and given update on patient. patient in no distress, awaiting transport home
--- NOTE | 2021-09-18 16:04 | ECG_ITS ---
Test Reason : ABNORMAL BLOOD TEST Blood Pressure : / mmHG Vent. Rate : 065 BPM Atrial Rate : 202 BPM P-R Int : 000 ms QRS Dur : 124 ms QT Int : 430 ms P-R-T Axes : 000 -59 110 degrees QTc Int : 447 ms Atrial fibrillation Left axis deviation Left ventricular hypertrophy with QRS widening and repolarization abnormality ( R in aVL , [place] product , Romhilt-Tovar ) Possible Lateral infarct (cited on or before 12-SEP-2021) Abnormal ECG When compared with ECG of 12-SEP-2021 18:02, No significant changes seen Referred By: Josey Nava Electronically Signed By:EMANUEL NAGY
== END 2021-09-18 18:01 | disposition skilled nursing facility (03) ==
PROVIDERS: Physician Assistant Medical; Emergency Provider Emergency Medicine Emergency Medical Services
DX: R10.32 Left lower quadrant pain (principal); E87.1 Hypo-osmolality and hyponatremia; R79.89 Other specified abnormal findings of blood chemistry; M25.512 Pain in left shoulder; R06.02 Shortness of breath; M25.511 Pain in right shoulder; Z79.899 Other long term (current) drug therapy
CPT/HCPCS: 36415; 73030; 74018; 74176; 80053; 81001; 83605; 83690; 83880; 84484; 85025; 87040; 93005; 96360; 99284

== ENCOUNTER 2022-08-21 11:18 | Emergency (ER) | payer MEDICARE, OTHER, SELFPAY ==
[2022-08-21] VITALS (7 sets, daily range): BP systolic 93–185; BP diastolic 50–91; PULSE 66–83; RESP 14–22; TEMP 36.6–36.8; O2SAT 93–96; BMI 27.1
--- NOTE | ~2022-08-21 | CT_ITS ---
EXAMINATION: CT ABDOMEN AND PELVIS WITHOUT CONTRAST CLINICAL INFORMATION: Fall. Injury. COMPARISON: Previous CT of the abdomen and pelvis August 2021 TECHNIQUE: Multidetector volumetric imaging was performed from the superior aspect of the liver through the pubic symphysis. Sagittal and coronal reformatted images were obtained on the technologist's workstation. This CT examination was performed using dose optimization techniques as appropriate, variously including the following: *Automated exposure control *Adjustment of mA and/or kV according to patient size (this includes techniques or standardized protocols for targeted exams where dose is matched to indication/reason for exam; i.e. extremities or head) *Use of iterative reconstruction technique DLP: 858 mGy-cm FINDINGS: LIVER, GALLBLADDER, AND BILIARY TREE: The liver is normal in size, shape, and attenuation. No focal hepatic lesion or biliary ductal dilatation is present. Small gallstones in the gallbladder. PANCREAS: Unremarkable. SPLEEN: Small calcifications in the spleen. ADRENAL GLANDS: Unremarkable. KIDNEYS AND URETERS: The kidneys are normal in size, shape, and attenuation. Small nonobstructing left renal stones. Normal right kidney. BLADDER: Delcid catheter in the bladder. Bladder not well-visualized due to artifact from hip replacements. GASTROINTESTINAL TRACT: Diverticulosis. No evidence of diverticulitis. No evidence of free air or ascites. The small and large bowel are otherwise unremarkable. The appendix is unremarkable. ABDOMINAL WALL: Small umbilical hernia containing fat. LYMPH NODES: Normal. VASCULAR: Atherosclerotic disease PELVIC VISCERA: Not well-visualized due to artifact from hip replacements. OSSEOUS STRUCTURES: Degenerative changes of the spine. Bilateral hip replacements. No acute fracture or dislocation. CT/CT abdomen pelvis wo IV con IMPRESSION: No acute findings. Gallstones. Diverticulosis. Left renal stones. Delcid catheter in the bladder. Fleischner guidelines were followed.
--- NOTE | ~2022-08-21 | CT_ITS ---
EXAMINATION: CT LUMBAR SPINE WITHOUT CONTRAST CLINICAL INFORMATION: Fall. Back pain. COMPARISON: Lumbar spine x-ray June 2008 TECHNIQUE: Axial images through the lumbar spine without IV contrast. Sagittal and coronal reconstructions on the technologist workstation were performed. This CT examination was performed using dose optimization techniques as appropriate, variously including the following: *Automated exposure control *Adjustment of mA and/or kV according to patient size (this includes techniques or standardized protocols for targeted exams where dose is matched to indication/reason for exam; i.e. extremities or head) *Use of iterative reconstruction technique DLP; 479 mGy-cm FINDINGS: There is a mild compression fracture of the superior endplate of the L2 vertebral body. No other fracture is seen. There is mild 5 mm anterior subluxation of L5 with respect to L4. Bone alignment is otherwise normal. At T12-L1 there is a degenerative disc disease. No disc herniation. Spinal canal, lateral recesses and neural foramen are patent. At L1-L2 there is a bilateral disc bulge. No disc herniation. Spinal canal, lateral recesses and neural foramen are patent. At L2-L3 there is diffuse disc bulge. There is moderate secondary spinal stenosis due to disc bulge, short pedicles and facet arthritis. No disc herniation. At L3-L4 there is diffuse disc bulge. No disc herniation. There is moderate secondary spinal stenosis due to disc bulge, short pedicles and facet arthritis. At L4-L5 there is severe degenerative disc disease. There is a left paracentral disc herniation. There is a moderate spinal stenosis due to disc and short pedicles and facet arthritis. At L5-S1 there is degenerative disc disease. There is mild disc bulge. There is lower lumbar spine facet arthritis. No disc herniation. CT/CT lumbar spine wo IV con IMPRESSION: Mild compression fracture of the superior endplate of the L2 vertebral body. Left paracentral disc herniation at L4-L5 and multilevel degenerative disc disease.
--- NOTE | ~2022-08-21 | CT_ITS ---
EXAMINATION: CT head/brain wo IV con, CT cervical spine wo IV con INDICATION INFORMATION: Reason for Exam fall COMPARISON: CT head and cervical spine 09/12/2021 TECHNIQUE: Separate noncontrast CT examinations of the head and cervical spine were performed. Coronal and sagittal images were created for each examination at the technologist workstation. This CT examination was performed using dose optimization techniques as appropriate, variously including the following: *Automated exposure control *Adjustment of mA and/or kV according to patient size (this includes techniques or standardized protocols for targeted exams where dose is matched to indication/reason for exam; i.e. extremities or head) *Use of iterative reconstruction technique DLP: 1656.74 mGy-cm FINDINGS: Head: No acute osseous or soft tissue abnormality. Air-fluid level in the right sphenoid sinus, unchanged. Motion degraded exam which limits assessment for small hemorrhage, despite repeat attempts. No large intraparenchymal hematoma. No abnormal mass effect or midline shift is seen. No acute large territory infarct. Redemonstration of left occipitoparietal encephalomalacia compatible sequelae of remote infarct. Similar bilateral anterior temporal and bifrontal encephalomalacia which may reflect squarely of prior trauma. No extra-axial fluid collections are identified within the limitations of motion. No hydrocephalus. Proportional prominence of the ventricles and sulcal spaces is consistent with mild volume loss. Patchy periventricular and deep white matter hypoattenuation is consistent with moderate small vessel ischemic changes. Cervical spine: There is no evidence of acute cervical spine fracture. Vertebral bodies remain normal in height. Alignment is maintained. Multilevel loss of disc space height. Right lateral disc protrusion at C4-C5 with an associated disc osteophyte complex indents the ventral thecal sac. No pre- or paravertebral soft tissue abnormality is identified. Visualized portions of the lung apices are unremarkable. The thyroid gland is unremarkable. CT/CT cervical spine wo IV con IMPRESSION: 1. Motion degraded exam despite repeat attempts limiting assessment for small intracranial hemorrhage. No large intraparenchymal hematoma. Recommend repeat exam when patient is better able to tolerate. 2. No cervical spine fracture or traumatic malalignment. 3. Air-fluid level in the right sphenoid sinus which could be seen in the setting of acute sinusitis, though is unchanged from prior. 4. Right lateral disc protrusion at C4-C5 with associated disc osteophyte complex indents the ventral thecal sac, unchanged. 5. Similar chronic multifocal encephalomalacia with chronic white matter ischemic changes.
--- NOTE | ~2022-08-21 | CT_ITS ---
EXAMINATION: CT CHEST WITHOUT CONTRAST CLINICAL INFORMATION: Fall. Pain. COMPARISON: Previous chest CT August 2021 TECHNIQUE: Multidetector volumetric CT imaging of the chest was done. Axial MIP volume rendering provided. Sagittal and coronal reformatted images were obtained. This CT examination was performed using dose optimization techniques as appropriate, variously including the following: *Automated exposure control *Adjustment of mA and/or kV according to patient size (this includes techniques or standardized protocols for targeted exams where dose is matched to indication/reason for exam; i.e. extremities or head) *Use of iterative reconstruction technique DLP: 506 mGy-cm FINDINGS: LUNGS: Limited due to artifact from respiratory motion. There is evidence of emphysema. There is question of mild interstitial lung disease at the lung bases. There is a 5 mm calcified right upper lobe nodule axial image 13 series 10 that is stable. There is a 4 mm calcified right lower lobe peripheral or subpleural nodule axial image 53 series 10 that is stable. MEDIASTINUM: The heart is very enlarged. No pericardial effusion. Severe coronary artery calcification. Aortic valve calcification. No enlarged hilar or mediastinal lymph nodes. Normal caliber thoracic aorta. CORONARY ARTERY CALCIFICATION: Severe PLEURA: There is no pleural effusion. No pleural mass or thickening. No pneumothorax. AXILLA: No lymphadenopathy. UPPER ABDOMEN: Unremarkable. OSSEOUS STRUCTURES: Degenerative changes of the spine. CT/CT chest wo IV con IMPRESSION: Limited due to motion artifact. No acute findings. Very enlarged heart. Severe coronary artery and aortic valve calcification. Emphysema. Fleischner guidelines were followed.
[2022-08-21 12:21] LABS: Basophils Percent Auto 0.3 % (0-2); Eosinophils Percent Auto 0.3 % (0-4); Hematocrit 39.2 % (42.0-52.0); Hemoglobin 12.3 g/dl (14.0-18.0); Imm Gran Abs Auto 0.05 X10*3/uL (0.00-0.03); Imm Gran Pct Auto 0.8 % (0.0-0.4); Lymphocytes Absolute Auto 0.1 X10*3/uL (1.2-4.9); Lymphocytes Percent Auto 1.9 % (20-40); Mean Corpuscular HGB Conc 31.4 g/dl (31.0-36.0); Mean Corpuscular Hemoglobin 28.9 pg (27.0-33.0); Mean Corpuscular Volume 92.2 fL (80.0-98.0); Mean Platelet Volume 9.4 fL (9.4-12.4); Monocytes Percent Auto 0.2 % (2-11); Neutrophils Absolute Auto 5.7 x10*3/uL (2.0-8.3); Neutrophils Percent Auto 96.5 % (45-73); Platelet Count 184 X10*3/uL (160-400); Red Blood Count 4.25 X10*6/uL (4.60-5.80); Red Cell Distribution Width 17.2 % (11.0-16.0); SCAN SMEAR FLAG 1; White Blood Count 5.9 X10*3/uL (4.8-10.8)
[2022-08-21 12:24] LABS: Appearance Urine Clear; Color Urine Yellow; Glucose Urine UA Negative (Negative); Leukocyte Esterase Urine Negative (Negative); Nitrite Urine Negative (Negative); PH 6.5 (5.0-9.0); Urine Blood Negative (Negative); Urine Ketones Negative (Negative); Urine Protein Negative (Neg-Trace)
--- NOTE | 2022-08-21 12:35 | PC.NURSE ---
pt AOx3, agitated and shouting constantly about pain all over . Pt reports difficulty urinating. Bladder scan indicated >500ml. A small amount of dark red/brown blood/stool was noted in commode and pt reports that their ass hurts . EMs placed an 18 in left AC. This nurse inserted a 20 in left AC. initial labs sent.
[2022-08-21 12:36] LABS: Alanine Aminotransferase 39 U/L (0-40); Alkaline Phosphatase 214 U/L (39-117); Anion Gap 16 (12-20); Aspartate Amino Transferase 45 U/L (5-37); Bilirubin Direct 0.7 mg/dL (0.0-0.5); Bilirubin Total 1.7 mg/dL (0.0-1.0); Blood Urea Nitrogen 52 mg/dL (9-16); Carbon Dioxide 25 mmol/L (22-29); Chloride 101 mmol/L (96-108); Creatinine Clr Calc Pharmacy 35.1; Estimated Glomerular Filt Rate 38; Glucose Random 102 mg/dL (60-115); Lipase 24 U/L (8-78); Potassium 4.7 mmol/L (3.3-5.1); Sodium 137 mmol/L (135-145); Total Protein 7.9 g/dL (6.5-8.0)
[2022-08-21 12:40] LABS: MANUAL DIFF FLAG SCAN; SLIDE REVIEW VERIFIED
[2022-08-21] MEDS: Acetaminophen 325 MG TABLET 650 MG PO (12:45)
[2022-08-21] MEDS: Morphine Sulfate 2 MG/ML CARTRIDGE IVPUSH (12:46)
--- NOTE | 2022-08-21 12:49 | PC.NURSE ---
PT to CT scan
--- NOTE | 2022-08-21 13:32 | PC.NURSE ---
when changing bed linens blood from rectum noted on stretcher bad.
--- NOTE | 2022-08-21 13:34 | PC.NURSE ---
straight cath done. 550ml urine output
--- NOTE | 2022-08-21 15:00 | PC.NURSE ---
this nurse assisted patient to commode- noted was jenny red blood- provider at bedside- rectal exam performed by provider who feels blood from hemorrhoid - pt was also disempacted of stool by provider.
--- NOTE | 2022-08-21 15:58 | PC.NURSE ---
pt incontinent of large amount of stool
--- NOTE | 2022-08-21 16:20 | ED.GENADULT ---
HPI - General Adult General Chief complaint: General Medical Stated complaint: BODY PAIN, HEMATURIA Time Seen by Provider: 08/21/22 12:29 Source: patient Mode of arrival: EMS Limitations: physical limitation History of Present Illness HPI narrative: 77-year-old male with past medical history of CHF, history of AR, and AFib on Eliquis presents to the emergency department, via ambulance, for discomfort ?all over, generalized weakness, and trouble urinating. He reports he sustained a mechanical fall earlier today onto his ?[place]? which has worsened his full body pain. He denies any dizziness, lightheadedness, chest pain or palpitations, or confusion prior to falling. He denies striking his head or neck, loss of consciousness, nausea, vomiting, or confusion after falling. He complains of pain in his low back and lower abdomen be attributes to lower abdominal pain to difficulty with urinating. He also reports constipation states he has had difficulty moving his bowels with his last bowel movement several days ago. He otherwise denies chest pain, shortness of breath, nausea, vomiting, paresthesias, diarrhea, melena, headache, or vision changes. Pertinent positives and negatives discussed in HPI Related Data Home Medications Medication Instructions Recorded Confirmed brimonidine 0.1 % eye drops 1 drp ophthalmic-Right DAILY 09/12/21 09/12/21 (Alphagan P) carvedilol 6.25 mg tablet 0.5 tab PO BID 09/12/21 09/12/21 isosorbide mononitrate 30 mg 1 tab PO DAILY 09/12/21 09/12/21 tablet,extended release 24 hr latanoprost 0.005 % eye drops 1 drp ophthalmic-Right BEDTIME 09/12/21 09/12/21 lisinopril 5 mg tablet 2 tab PO DAILY 09/12/21 09/12/21 mirtazapine 15 mg tablet 1 tab PO BEDTIME 09/12/21 09/12/21 nitroglycerin 0.4 mg sublingual 0.4 mg sublingual DAILY PRN Chest 09/12/21 09/12/21 tablet Pain prednisone 5 mg tablet 1 tab PO QAM rheumatoid arteritis 09/12/21 09/12/21 rivaroxaban 20 mg tablet (Xarelto) 1 tab PO QPM 09/12/21 09/12/21 rosuvastatin 10 mg tablet 1 tab PO DAILY 09/12/21 09/12/21 sertraline 25 mg tablet 1 tab PO DAILY 09/12/21 09/12/21 tramadol 50 mg tablet 1 tab PO Q6H PRN Pain 09/12/21 09/12/21 Allergies Allergy/AdvReac Type Severity Reaction Status Date / Time gabapentin AdvReac Dizziness Verified 08/21/22 16:40 oxycodone AdvReac Unknown Verified 08/21/22 16:40 Review of Systems Review of Systems: Yes all other systems are reviewed and are negative FOR[facility]LY [facility] Past Medical History Medical History (Updated 08/21/22 @ 16:49 by [employer] NP) Afib CHF (congestive heart failure) Hx of myocardial infarction Social History Social History Alcohol intake: never Patient Tobacco Use Status: Never used Tobacco Smoked in Last 30 Days: No Use of substances other than those prescribed or required for medical reasons: No Advance Directives: No Advance Directives Information Provided: No Advance Directives Date on File: 09/13/21 service: No Current occupational status: retired Physical Exam ED Vital Signs: Vital Signs - 24 hr 08/21/22 11:26 08/21/22 13:30 08/21/22 16:42 Temperature 98 F 98.2 F Pulse Rate 83 82 78 Respiratory Rate 16 22 H 18 Blood Pressure 131/91 H 121/64 93/54 L Pulse Oximetry 94 93 95 Oxygen Delivery Method Room Air Room Air Room Air BMI result Body Mass Index 27.1 Nursing notes and vital signs reviewed. GENERAL APPEARANCE: A&0 x 4, generally well appearing, no acute distress HENMT: Normal to inspection, atraumatic, face symmetrical. Normal external ears, nose, and oropharynx clear. EYE: PERRLA, EOM intact, structures appear normal NECK: Supple without lymphadenopathy. No stiffness or restricted ROM. CHEST: Normal to inspection HEART: Normal rate and regular rhythm, normal S1/S2, no M/R/G LUNGS: LS CTA, moving air well. Able to speak in complete sentences. No crackles, wheezes, or rhonchi auscultated ABDOMEN: Soft, nondistended. Lower abdomen tender to palpation. Normal bowel sounds noted : Cl[place] red blood coming from rectum. Attempted rectal exam, however; rectum is impacted with hard stool. BACK: No CVAT, no obvious deformity EXTREMITIES: Moving all extremities without difficulty. No cyanosis, clubbing, or edema. Normal capillary refill. NEUROLOGICAL: Alert and oriented, moving all 4 extremities with equal strength. CN not formally tested but appearing grossly intact. Observed to ambulate with normal gait. Cognition normal SKIN: Warm and dry without any lesions, rash, or visible sores PSYCH: Cooperative, normal affect, normal thought process Medications Administered Discontinued Medications Generic Name Dose Route Start Last Admin Trade Name Donovan PRN Reason Stop Dose Admin Acetaminophen 650 mg 08/21/22 12:34 08/21/22 12:45 Acetaminophen 325 Mg Tablet PO 08/21/22 12:35 650 mg ONCE ONE Administration Morphine Sulfate 2 mg 08/21/22 12:35 08/21/22 12:46 Morphine Sulfate 2 Mg/Ml Cartridge IVPUSH 08/21/22 12:36 2 mg ONCE ONE Administration Protocol Medical Decision Making Medical Decision Making MDM Narrative: 1150: Old records reviewed for previous imaging, lab studies, ECGs, or notes. Patient was assessed the emergency department. No acute distress or toxicity noted. Patient is A&O x4, LS CTA, PERDOMO x4 with moderate strength while lying down, patient appears be unsteady while standing/pivoting to commode. Based on HPI and PE plan for CT head, C-spine, chest, abdomen, pelvis, and lumbar spine to rule out fracture, dislocation, or acute pathology to explain patient's discomfort. Blood work, UA, Tylenol and morphine ordered for management of pain. 1415: Have independently interpreted the CT lumbar spine showing a mild compression fracture of L2 vertebral body and disc herniation at L4 and multilevel disc degenerative disease. CT head/C-spine showing no fractures, dislocation, or acute disc changes. Chronic intracranial ischemic changes noted. CT chest showing cardiomyopathy, severe CAD and emphysema and CT abdomen/pelvis with gallstones, diverticulosis, left renal stones and no acute findings. 1500: Patient transitioning from commode to bed. Clovis red blood noted. When I went in to do rectal exam to assess for source of bleeding, a large volume of hard stool was present partially protruding from the rectum. Patient was disimpacted of hard brown stool. I was able to then do a rectal exam and assessed a moderate size internal hemorrhoid which is most likely the cause of patient's bleeding. 1600: Patient was incontinent of a large bowel movement. Plan for patient to be discharged home to his cane feeder, Sam. In speaking with Sam, he is out of the state leaving the patient home alone with no services. Based on patient's recent falls and weakness, plan for PT evaluation and Case Management with potential need for SNF. In speaking with Sam he reports the patient has been trouble managing his medication and he believes that the patient has taken excessive amounts of tramadol which may have contributed to patient's falls. 1630: Case management and PT consult ordered. Sign out given to Iam TAYLOR. Differential Diagnosis Differential Diagnoses: The differential diagnosis associated with the presentation includes Constipation, urinary retention Admission/Observation Consideration of admission/observation: Escalation of care including admission/observation considered Based on HPI, PE, and diagnostics, admission is not needed at this time, however; patient is not safe to be discharged home and is in need of case management Lab Data MDM Lab Attestation statement: I reviewed the patient's lab results. 08/21/22 12:08 08/21/22 12:08 Labs: Lab Results 08/21/22 08/21/22 08/21/22 Range/Units 12:08 12:08 12:12 WBC 5.9 (4.8-10.8) X10*3/uL RBC 4.25 L (4.60-5.80) X10*6/uL Hgb 12.3 L (14.0-18.0) g/dl Hct 39.2 L (42.0-52.0) % MCV 92.2 (80.0-98.0) fL MCH 28.9 (27.0-33.0) pg MCHC 31.4 (31.0-36.0) g/dl RDW 17.2 H (11.0-16.0) % Plt Count 184 (160-400) X10*3/uL MPV 9.4 (9.4-12.4) fL Immature Gran % (Auto) 0.8 H (0.0-0.4) % Neut % (Auto) 96.5 H (45-73) % Lymph % (Auto) 1.9 L (20-40) % [place] % (Auto) 0.2 L (2-11) % Eos % (Auto) 0.3 (0-4) % Baso % (Auto) 0.3 (0-2) % Lymph # (Auto) 0.1 L (1.2-4.9) X10*3/uL [place] # (Auto) 0.0 L (0.1-1.2) X10*3/uL Eos # (Auto) 0.0 (0.0-0.4) X10*3/uL Baso # (Auto) 0.0 (0.0-0.2) X10*3/uL Abs Immat Gran (auto) 0.05 H (0.00-0.03) X10*3/uL Absolute Neuts (auto) 5.7 (2.0-8.3) x10*3/uL Absolute Nucleated RBC 0.000 (0.0-0.012) X10*3/uL Nucleated RBC % (auto) 0.0 (0.0-0.2) /100WBC Smear Tech's Comments VERIFIED Sodium 137 (135-145) mmol/L Potassium 4.7 D (3.3-5.1) mmol/L Chloride 101 (96-108) mmol/L Carbon Dioxide 25 (22-29) mmol/L Anion Gap 16 (12-20) BUN 52 H (9-16) mg/dL Creatinine 1.76 H (0.5-1.4) mg/dL Estim Creat Clear Calc 35.1 Estimated GFR 38 Random Glucose 102 (60-115) mg/dL Calcium 10.0 D (8.4-10.2) mg/dL Total Bilirubin 1.7 H (0.0-1.0) mg/dL Direct Bilirubin 0.7 H (0.0-0.5) mg/dL AST 45 H (5-37) U/L ALT 39 (0-40) U/L Alkaline Phosphatase 214 H (39-117) U/L Total Protein 7.9 (6.5-8.0) g/dL Albumin 4.0 (3.5-5.0) g/dL Lipase 24 (8-78) U/L Urine Color Yellow Urine Appearance Clear Urine pH 6.5 (5.0-9.0) Ur Specific [place] 1.010 (1.005-1.025) Urine Protein Negative (Neg-Trace) mg/dL Urine Glucose (UA) Negative (Negative) mg/dL Urine Ketones Negative (Negative) mg/dL Urine Blood Negative (Negative) Urine Nitrite Negative (Negative) Ur Leukocyte Esterase Negative (Negative) Independent Interpretation I performed an independent interpretation of an: CT Scan Radiology Impression Discussion of test interpretation with radiology: I have reviewed the radiologist's reading. Social Determinants Patient?s care significantly limited by Social Determinants of Health including: Inadequate housing Discharge Plan Discharge Clinical Impression: Acute urinary retention, Constipation Patient Disposition: Still a Patient Prescriptions: No Action latanoprost 0.005 % drops 1 drp ophthalmic-Right BEDTIME carvedilol 6.25 mg tablet 0.5 tab PO BID isosorbide mononitrate 30 mg tablet extended release 24 hr 1 tab PO DAILY prednisone 5 mg tablet 1 tab PO QAM tramadol 50 mg tablet 1 tab PO Q6H PRN (Reason: Pain) nitroglycerin 0.4 mg tablet, sublingual 0.4 mg sublingual DAILY PRN (Reason: Chest Pain) sertraline 25 mg tablet 1 tab PO DAILY lisinopril 5 mg tablet 2 tab PO DAILY mirtazapine 15 mg tablet 1 tab PO BEDTIME rosuvastatin 10 mg tablet 1 tab PO DAILY Alphagan P 0.1 % drops 1 drp ophthalmic-Right DAILY Xarelto 20 mg tablet 1 tab PO QPM
--- NOTE | 2022-08-21 16:40 | PC.NURSE ---
Sam Garcia [facility] phone number [phone]
--- NOTE | 2022-08-21 17:08 | PC.NURSE ---
patient a&o, calm/watching tv, vitals obtained by tech and patient was noted to be hypotensive, this nurse performed a manual and found the patient hypotensive as well, will notify provider and continue to monitor.
--- NOTE | 2022-08-21 17:28 | PC.NURSE ---
this nurse spoke with HCP Celine. He said that pt does not take oxycodone due to an addiction. Pt has prescription for tramadol at home and HCP indicated that he was not properly taking his medications. Provider aware.
[2022-08-21] MEDS: 0.9 % Sodium Chloride 1,000 ML 999 ML IV ×3 (17:37→23:50)
--- NOTE | 2022-08-21 17:40 | PC.NURSE ---
pt reports feeling significantly better. he is resting quitly. Fluids infusing per MAR. pt had bowel movement.
[2022-08-21 21:42] LABS: Alanine Aminotransferase 37 U/L (0-40); Albumin Level 3.3 g/dL (3.5-5.0); Alkaline Phosphatase 180 U/L (39-117); Anion Gap 15 (12-20); Aspartate Amino Transferase 45 U/L (5-37); Bilirubin Total 1.9 mg/dL (0.0-1.0); Blood Urea Nitrogen 51 mg/dL (9-16); Calcium 9.1 mg/dL (8.4-10.2); Carbon Dioxide 24 mmol/L (22-29); Chloride 104 mmol/L (96-108); Creatinine Clr Calc Pharmacy 41.2; Estimated Glomerular Filt Rate 45; Glucose Random 103 mg/dL (60-115); Potassium 5.2 mmol/L (3.3-5.1); Sodium 138 mmol/L (135-145); Total Protein 6.6 g/dL (6.5-8.0)
[2022-08-21] MEDS: Morphine Sulfate 4 MG/ML CARTRIDGE IVPUSH (23:50)
[2022-08-22] VITALS (9 sets, daily range): BP systolic 107–153; BP diastolic 62–80; PULSE 62–689; RESP 12–18; TEMP 36–36.8; O2SAT 92–97
[2022-08-22 01:26] LABS: Alanine Aminotransferase 34 U/L (0-40); Albumin Level 3.3 g/dL (3.5-5.0); Alkaline Phosphatase 179 U/L (39-117); Anion Gap 19 (12-20); Aspartate Amino Transferase 44 U/L (5-37); Blood Urea Nitrogen 50 mg/dL (9-16); Calcium 8.7 mg/dL (8.4-10.2); Carbon Dioxide 19 mmol/L (22-29); Chloride 105 mmol/L (96-108); Creatinine Clr Calc Pharmacy 41.5; Estimated Glomerular Filt Rate 45; Glucose Random 100 mg/dL (60-115); Sodium 138 mmol/L (135-145); Total Protein 6.6 g/dL (6.5-8.0)
[2022-08-22] MEDS: Morphine Sulfate 2 MG/ML CARTRIDGE IVPUSH (07:42)
[2022-08-22] MEDS: Lidocaine 4 % Patch ADH..PATCH 1 PATCH TRANSDERMA (07:43)
--- NOTE | 2022-08-22 08:58 | PHA.MEDREC ---
Pharmacy Consult ? Medication Reconciliation Pharmacy has completed the medication reconciliation. Spoke to Sam in patients contact list, patient told me he was the one that takes care of all medications
[2022-08-22] MEDS: Docusate Sodium 100 MG CAPSULE PO (09:08)
[2022-08-22 11:00] LABS: COVID-19 Test Negative (Negative); IDNOW Serial# 08D9AD1C
[2022-08-22] MEDS: lisinopriL 10 MG TABLET PO (12:04)
[2022-08-22] MEDS: Acetaminophen 325 MG TABLET 650 MG PO (12:05)
[2022-08-22] MEDS: predniSONE 5 MG TABLET 10 MG PO (12:05)
[2022-08-22] MEDS: Omeprazole 20 MG CAPSULE.DR PO (12:05)
[2022-08-22] MEDS: Sertraline HCL 50 MG TABLET PO (12:05)
[2022-08-22] MEDS: Finasteride 5 MG TABLET PO (12:05)
[2022-08-22] MEDS: traMADoL HCL 50 MG TABLET PO (12:05)
[2022-08-22] MEDS: carvediloL 3.125 MG TABLET PO (12:06)
[2022-08-22] MEDS: Spironolactone 25 MG TABLET PO (12:06)
--- NOTE | 2022-08-22 14:14 | MHC.CM.ED ---
Addendum entered by Jessica Kidd 08/22/22 15:21: Tessie TAYLOR met with patient and feels [facility] can safely go [facility]. [facility] to obtain [facility] shuttle to transport patient home. However, shuttle doesn't go to [place]. [facility] booked for 330. Patient, Benjy RN and Tessie TAYLOR aware. Maribeth from [facility] made aware. Original Note: Received case management consult overnight. Patient came to the ER due to back pain. Work up essentially negative. Physical therapy eval completed. Home therapy is recommended. Met with patient in regards to discharge planning. Patient lives alone, uses a walker for mobility and has a home health aide through [facility]. Copy of HCP verified to be on file. Patient received 4 [employer] vacines. PCP verified as Dr Plasencia. Patient is active with [facility] for medication administration. Referral sent to [facility] for SN[facility] PT and [facility]. Received telephone call from patient's career services representative at [facility]. Maribeth can be reached via telephone at [phone], ext [phone]. Maribeth is concerned patient is confused. He doesn't know how to ended up in the ER and feels patient has been going to the ER frequently lately. Patient was last at [facility] in August 2021. Maribeth verifies patient was last inpatient May 2022 at [facility] due to CVA. Patient was discharged to [facility] for 22 days and then returned home. [facility]. Tessie TAYLOR made aware of Maribeth's concern. Continue to monitor for d/c needs.
== END 2022-08-22 15:48 | disposition home or self-care (01) ==
PROVIDERS: Physician Assistant; Emergency Provider Emergency Medicine Emergency Medical Services; PCP Internal Medicine
DX: R33.9 Retention of urine, unspecified (principal); M79.10 Myalgia, unspecified site; K59.00 Constipation, unspecified; R31.9 Hematuria, unspecified; M54.6 Pain in thoracic spine; M54.2 Cervicalgia; M54.50 Low back pain, unspecified; I25.10 Atherosclerotic heart disease of native coronary artery without angina pectoris; I48.91 Unspecified atrial fibrillation; Z20.822 Contact with and (suspected) exposure to COVID-19; Z20.828 Contact with and (suspected) exposure to other viral communicable diseases; Z79.01 Long term (current) use of anticoagulants; Z79.899 Other long term (current) drug therapy
CPT/HCPCS: 36415; 51702; 70450; 71250; 72125; 72131; 74176; 80048; 80053; 80076; 81003; 83690; 85025; 87635; 96361; 96374; 96375; 96376; 97161; 99285; J2270